=== PATIENT | male | born 1985 | race Caucasian/White ===

== ENCOUNTER 2017-03-23 08:51 | Emergency (ER) | payer OTHER ==
--- NOTE | 2017-03-23 09:36 | PDOC ---
History of Present Illness - General Chief Complaint: Injury Stated Complaint: FALL Time Seen by Provider: 03/23/17 08:58 History Source: Care Provider (direct care worker) Exam Limitations: Physical Impairment - History of Present Illness Initial Comments: 03/23/17 09:31 31-year-old male a resident at [facility] was brought in for evaluation of a fall this morning. Patient was in his bed that was approximately 2 feet off the ground . As per staff this morning they found this patient on the linoleum floor with no physical injuries by protocol is if the patient falls they need to be evaluated by a medical provider. Patient only has a mat underneath his bed since he frequently falls out of bed despite safety measures provided. Patient with history of cerebral palsy along with contractures. Occurred: reports: just prior to arrival Pain Location: reports: none Associated Symptoms (Fall): denies symptoms Past History - Travel Traveled outside of the country in the last 30 days: No - Past Medical History Allergies/Adverse Reactions: Allergies Allergy/AdvReac Type Severity Reaction Status Date / Time No Known Allergies Allergy Verified 03/23/17 09:39 - Suicide/Smoking/Psychosocial Hx Patient Lives Alone: No Lives with/in: snf Review of Systems - Review of Systems Able to Perform ROS?: Yes ABD/GI: No: Vomiting Integumentary: No: Symptoms Reported Hematologic/Lymphatic: Yes: See HPI *Physical Exam - Physical Exam General Appearance: Yes: Nourished, Appropriately Dressed. No: Apparent Distress HEENT: positive: EOMI, SOLA, TMs Normal, Pharynx Normal (full mobility of mandible) Neck: positive: Supple. negative: Decreased range of motion Respiratory/Chest: positive: Lungs Clear, Normal Breath Sounds. negative: Chest Tender, Respiratory Distress, Accessory Muscle Use Cardiovascular: positive: Regular Rhythm, Regular Rate. negative: Murmur Gastrointestinal/Abdominal: positive: Soft. negative: Distended Extremity: positive: Normal Capillary Refill, Normal Inspection Integumentary: positive: Normal Color, Warm, Moist. negative: Erythema, Swelling, Ecchymosis Neurologic: positive: Motor Strength 5/5 (moving contracted extremities x 4 actively ) Medical Decision Making - Medical Decision Making 03/23/17 09:35 Patient status post unwitnessed fall from bed less than 2 feet off the ground staff states patient is here for evaluation. Patient arrives with no physical or acute findings. Patient will be sent back to [facility] *DC/Admit/Observation/Transfer Diagnosis at time of Disposition: Fall Qualifiers: Encounter type: initial encounter Qualified Code(s): W19.XXXA - Unspecified fall, initial encounter - Discharge Dispostion Disposition: HOME - Referrals Referrals: Marcela Hemphill [Primary Care Provider] - - Patient Instructions Printed Discharge Instructions: How to Prevent Falls Additional Instructions: Please provide pt with safety measures. - Post Discharge Activity
[2017-03-23 09:39] VITALS: BP 130/62; PULSE 80; TEMP 98; BMI 21.6
== END 2017-03-23 11:50 | disposition home or self-care (01) ==
LOC: JER 08:51
DX: Z04.3 Encounter for examination and observation following other accident (principal); W06.XXXA Fall from bed, initial encounter; Y93.89 Activity, other specified; Y92.193 Bedroom in other specified residential institution as the place of occurrence of the external cause; G80.8 Other cerebral palsy
CPT/HCPCS: 99282-25

== ENCOUNTER 2022-11-11 10:24 | Inpatient (IN) | payer OTHER ==
[2022-11-11] MEDS ORDERED: HALOPERIDOL LACTATE 5 MG/ML IM ONE ×2 (11:03)
[2022-11-11] MEDS ORDERED: LORazepam 2 MG/ML SDV VIAL IM ONE (11:03)
[2022-11-11 12:28] LABS: VENOUS BASE EXCESS -0.3 mmol/L (-2-2); VENOUS PCO2 49.8 mmHg (38-52); VENOUS PH 7.338 (7.310-7.410)
[2022-11-11 12:41] LABS: EPI CELLS 19 /uL (0-25.1); HYALINE CASTS 0 /uL (0-3.1); URINE APPEARANCE CLEAR; URINE BACTERIA 7 /uL (0-1359); URINE BILIRUBIN NEGATIVE (NEGATIVE); URINE COLOR YELLOW; URINE GLUCOSE (UA) 2+ (NEGATIVE); URINE KETONE TRACE (NEGATIVE); URINE LEUK ESTERASE NEGATIVE (NEGATIVE); URINE NITRITE NEGATIVE (NEGATIVE); URINE PROTEIN NEGATIVE (NEGATIVE); URINE RBC 66 /uL (0-23.9); URINE UROBILINOGEN 0.2 mg/dL (0.2-1.0); URINE WBC 7 /uL (0-25.8)
[2022-11-11 13:10] LABS: EOS % 1.2 % (0-4.5); HEMATOCRIT 41.4 % (35.4-49); HEMOGLOBIN 13.3 GM/dL (11.7-16.9); LYMPH % 13.3 % (8-40); MCH 29.3 pg (25.7-33.7); MCHC 32.1 g/dl (32.0-35.9); MEAN CELL VOLUME 91.1 fl (80-96); MEAN PLT VOLUME 9.4 fl (7.5-11.1); MONO % 16.6 % (3.8-10.2); NEUT % 67.9 % (42.8-82.8); PLATELET COUNT 217 10^3/uL (134-434); RBC 4.54 M/mm3 (4.00-5.60); RDW 13.8 % (11.9-15.9); WHITE BLOOD COUNT 6.7 K/mm3 (4.0-10.0)
[2022-11-11 13:17] LABS: INR 1.05 (0.83-1.09); PROTHROMBIN TIME (PATIENT) 12.2 SEC (9.7-13.0)
[2022-11-11 13:20] LABS: ACTIVATED PTT 30.5 SECONDS (25.2-36.5)
[2022-11-11 13:28] LABS: POTASSIUM 3.9 mmol/L (3.5-5.1)
[2022-11-11 13:30] LABS: CALCIUM 9.1 mg/dL (8.5-10.1)
[2022-11-11 13:31] LABS: ALBUMIN 3.2 g/dl (3.4-5.0); BLOOD UREA NITROGEN 10.2 mg/dL (7-18)
[2022-11-11 13:33] LABS: LACTIC ACID 3.8 mmol/L (0.4-2.0)
[2022-11-11 13:34] LABS: CREATININE 0.9 mg/dL (0.55-1.3)
[2022-11-11 13:36] LABS: BILIRUBIN,TOTAL 0.2 mg/dL (0.2-1); TOT PROT 7.1 g/dl (6.4-8.2)
[2022-11-11] MEDS ORDERED: SODIUM CHLORIDE 0.9% 500 ML INFUS.BAG IV ONE (13:42)
[2022-11-11 15:15] LABS: VENOUS BASE EXCESS -1.3 mmol/L (-2-2); VENOUS PH 7.36 (7.310-7.410)
[2022-11-11 15:42] LABS: LACTIC ACID 2.1 mmol/L (0.4-2.0)
[2022-11-11 15:53] LABS: BILIRUBIN,DIRECT 0.1 mg/dL (0.0-0.2)
[2022-11-11] MEDS ORDERED: REMDESIVIR 200 MG in SODIUM CHLORIDE 250 ML IVPB ONE (18:00)
[2022-11-11 20:40] VITALS: BMI 27.8
[2022-11-11] MEDS ORDERED: clonazePAM 2 MG TABLET PO SCH ×2 (22:00)
[2022-11-11] MEDS ORDERED: DIVALPROEX SODIUM 125 MG SPRINKLE CAPS PO SCH (22:00)
[2022-11-11] MEDS: ACETAMINOPHEN 1000 MG/100 ML BAG IVPB PRN (22:46)
[2022-11-11] MEDS: SENNOSIDES 8.6MG TABLET (FP) PO SCH (22:46)
[2022-11-11] MEDS: CLONAZEPAM PO SCH (22:47)
[2022-11-11] MEDS: TRIHEXYPHENIDYL HCL 5 MG TABLET PO SCH (22:47)
[2022-11-11] MEDS: DIVALPROEX SODIUM 125 MG SPRINKLE CAPS PO SCH (23:09)
[2022-11-12] MEDS: CLONAZEPAM PO SCH ×3 (05:43→21:39)
[2022-11-12] MEDS: TRIHEXYPHENIDYL HCL 5 MG TABLET PO SCH ×3 (05:43→21:37)
[2022-11-12] MEDS: ACETAMINOPHEN 1000 MG/100 ML BAG IVPB PRN (05:45)
[2022-11-12] MEDS ORDERED: CHOLECALCIFEROL (VIT D3) 400 UNIT (10 MCG) TABLET PO SCH (10:00)
[2022-11-12] MEDS ORDERED: DEXAMETHASONE SOD PHOSPHATE 10 MG/1 ML VIAL IVPUSH SCH (10:00)
[2022-11-12] MEDS: REMDESIVIR 100 MG in SODIUM CHLORIDE 250 ML IVPB SCH (10:05)
[2022-11-12] MEDS: ENOXAPARIN NA (PORCINE) 40 MG/0.4 ML DISP.SYRIN SQ SCH (10:06)
[2022-11-12] MEDS: SENNOSIDES 8.6MG TABLET (FP) PO SCH ×2 (10:07→21:40)
[2022-11-12] MEDS: DEXAMETHASONE SOD PHOSPHATE 10 MG/1 ML VIAL IVPUSH SCH (10:07)
[2022-11-12 10:24] LABS: BASO % 0.4 % (0-2.0); EOS % 0.2 % (0-4.5); HEMATOCRIT 41.9 % (35.4-49); HEMOGLOBIN 13.8 GM/dL (11.7-16.9); LYMPH % 8.3 % (8-40); MCH 29.5 pg (25.7-33.7); MEAN CELL VOLUME 89.5 fl (80-96); MEAN PLT VOLUME 8.7 fl (7.5-11.1); MONO % 9.7 % (3.8-10.2); NEUT % 81.4 % (42.8-82.8); PLATELET COUNT 191 10^3/uL (134-434); RBC 4.68 M/mm3 (4.00-5.60); RDW 13.9 % (11.9-15.9); WHITE BLOOD COUNT 12.2 K/mm3 (4.0-10.0)
[2022-11-12] MEDS ORDERED: PIPERACILLIN/TAZOB 3.375 GM 3.375 GM in DEXTROSE 5%-WATER - 50 ML IVPB SCH ×2 (10:30→10:45)
[2022-11-12] MEDS ORDERED: VANCOMYCIN/WATER FOR INJ (PEG) 1 GM/200 ML BAG IVPB SCH (10:30)
[2022-11-12 10:52] LABS: CALCIUM 8.8 mg/dL (8.5-10.1)
[2022-11-12 10:53] LABS: ALBUMIN 2.9 g/dl (3.4-5.0); BLOOD UREA NITROGEN 9.5 mg/dL (7-18)
[2022-11-12 10:58] LABS: BILIRUBIN,TOTAL 0.5 mg/dL (0.2-1); TOT PROT 6.7 g/dl (6.4-8.2)
[2022-11-12] MEDS ORDERED: VANCOMYCIN/WATER FOR INJ (PEG) 1 GM/200 ML BAG IVPB ONE (11:00)
[2022-11-12] MEDS: DIVALPROEX SODIUM 125 MG SPRINKLE CAPS PO SCH ×2 (11:12→21:38)
[2022-11-12] MEDS ORDERED: ACETAMINOPHEN 1000 MG/100 ML BAG IVPB PRN (13:28)
[2022-11-12] MEDS: LACTATED RINGERS SOLUTION 1,000 ML/1,000 ML INFUS.BAG IV SCH (13:32)
[2022-11-12] MEDS ORDERED: clonazePAM 0.5 MG TABLET ONE (14:43)
[2022-11-12] MEDS: PIPERACILLIN/TAZOB 3.375 GM 3.375 GM in DEXTROSE 5%-WATER - 50 ML IVPB SCH (17:35)
[2022-11-12] MEDS: CHOLECALCIFEROL (VIT D3) 1,000 UNIT (25 MCG) TABLET PO SCH (21:38)
[2022-11-12] MEDS: PSYLLIUM 5.85 GM PACKET PO SCH (22:32)
[2022-11-13] MEDS: PIPERACILLIN/TAZOB 3.375 GM 3.375 GM in DEXTROSE 5%-WATER - 50 ML IVPB SCH ×2 (01:12→10:53)
[2022-11-13] MEDS: CLONAZEPAM PO SCH ×3 (05:20→21:06)
[2022-11-13] MEDS: TRIHEXYPHENIDYL HCL 5 MG TABLET PO SCH ×3 (05:20→21:06)
[2022-11-13] MEDS: LACTATED RINGERS SOLUTION 1,000 ML/1,000 ML INFUS.BAG IV SCH (08:10)
[2022-11-13] MEDS: REMDESIVIR 100 MG in SODIUM CHLORIDE 250 ML IVPB SCH (09:29)
[2022-11-13] MEDS: ENOXAPARIN NA (PORCINE) 40 MG/0.4 ML DISP.SYRIN SQ SCH (09:30)
[2022-11-13] MEDS: DEXAMETHASONE SOD PHOSPHATE 10 MG/1 ML VIAL IVPUSH SCH (09:30)
[2022-11-13] MEDS: DIVALPROEX SODIUM 125 MG SPRINKLE CAPS PO SCH ×2 (09:30→21:05)
[2022-11-13] MEDS: SENNOSIDES 8.6MG TABLET (FP) PO SCH ×2 (09:30→21:06)
[2022-11-13 12:30] LABS: BASO % 0.2 % (0-2.0); HEMATOCRIT 39.2 % (35.4-49); HEMOGLOBIN 12.9 GM/dL (11.7-16.9); LYMPH % 11.9 % (8-40); MCH 29.3 pg (25.7-33.7); MCHC 32.9 g/dl (32.0-35.9); MEAN PLT VOLUME 9.1 fl (7.5-11.1); MONO % 5.1 % (3.8-10.2); NEUT % 82.8 % (42.8-82.8); PLATELET COUNT 226 10^3/uL (134-434); RDW 13.9 % (11.9-15.9); WHITE BLOOD COUNT 15.1 K/mm3 (4.0-10.0)
[2022-11-13 12:49] LABS: POTASSIUM 4.4 mmol/L (3.5-5.1)
[2022-11-13 12:51] LABS: CALCIUM 9.2 mg/dL (8.5-10.1)
[2022-11-13 12:52] LABS: ALBUMIN 2.8 g/dl (3.4-5.0); BLOOD UREA NITROGEN 18.4 mg/dL (7-18)
[2022-11-13 12:55] LABS: CREATININE 0.9 mg/dL (0.55-1.3)
[2022-11-13 12:57] LABS: BILIRUBIN,TOTAL 0.2 mg/dL (0.2-1); TOT PROT 6.7 g/dl (6.4-8.2)
[2022-11-13] MEDS: CEFTRIAXONE 1 GM in DEXTROSE 5%-WATER - 50 ML IVPB SCH (17:12)
[2022-11-13] MEDS: CHOLECALCIFEROL (VIT D3) 1,000 UNIT (25 MCG) TABLET PO SCH (21:05)
[2022-11-13] MEDS: PSYLLIUM 5.85 GM PACKET PO SCH (21:06)
[2022-11-14] MEDS: TRIHEXYPHENIDYL HCL 5 MG TABLET PO SCH ×3 (05:07→21:54)
[2022-11-14] MEDS: CLONAZEPAM PO SCH ×3 (05:07→21:53)
[2022-11-14] MEDS: CEFTRIAXONE 1 GM in DEXTROSE 5%-WATER - 50 ML IVPB SCH (09:33)
[2022-11-14] MEDS: ENOXAPARIN NA (PORCINE) 40 MG/0.4 ML DISP.SYRIN SQ SCH (09:34)
[2022-11-14] MEDS: DIVALPROEX SODIUM 125 MG SPRINKLE CAPS PO SCH ×2 (09:34→21:53)
[2022-11-14] MEDS: DEXAMETHASONE SOD PHOSPHATE 10 MG/1 ML VIAL IVPUSH SCH (09:34)
[2022-11-14] MEDS: SENNOSIDES 8.6MG TABLET (FP) PO SCH ×2 (09:35→21:53)
[2022-11-14 10:49] LABS: BASO % 0.3 % (0-2.0); HEMATOCRIT 38.4 % (35.4-49); HEMOGLOBIN 12.6 GM/dL (11.7-16.9); LYMPH % 24.4 % (8-40); MCH 29.2 pg (25.7-33.7); MCHC 32.7 g/dl (32.0-35.9); MEAN CELL VOLUME 89.3 fl (80-96); MEAN PLT VOLUME 8.9 fl (7.5-11.1); MONO % 7.8 % (3.8-10.2); NEUT % 67.5 % (42.8-82.8); PLATELET COUNT 226 10^3/uL (134-434); RDW 13.9 % (11.9-15.9); WHITE BLOOD COUNT 11.1 K/mm3 (4.0-10.0)
[2022-11-14 11:18] LABS: POTASSIUM 4.3 mmol/L (3.5-5.1)
[2022-11-14 11:22] LABS: BLOOD UREA NITROGEN 20.4 mg/dL (7-18)
[2022-11-14 11:23] LABS: CALCIUM 8.8 mg/dL (8.5-10.1)
[2022-11-14 11:24] LABS: ALBUMIN 2.7 g/dl (3.4-5.0)
[2022-11-14 11:27] LABS: CREATININE 0.8 mg/dL (0.55-1.3)
[2022-11-14 11:29] LABS: BILIRUBIN,TOTAL 0.1 mg/dL (0.2-1); TOT PROT 6.5 g/dl (6.4-8.2)
[2022-11-14] MEDS: REMDESIVIR 100 MG in SODIUM CHLORIDE 250 ML IVPB SCH (16:11)
[2022-11-14] MEDS: AMINO ACIDS 4.25%/D5W 1,000 ML IV SCH (17:38)
[2022-11-14] MEDS: CHOLECALCIFEROL (VIT D3) 1,000 UNIT (25 MCG) TABLET PO SCH (21:53)
[2022-11-14] MEDS: PSYLLIUM 5.85 GM PACKET PO SCH (21:53)
[2022-11-15] MEDS: CLONAZEPAM PO SCH ×3 (05:22→21:26)
[2022-11-15] MEDS: TRIHEXYPHENIDYL HCL 5 MG TABLET PO SCH ×3 (05:23→21:28)
[2022-11-15] MEDS: ENOXAPARIN NA (PORCINE) 40 MG/0.4 ML DISP.SYRIN SQ SCH (09:52)
[2022-11-15] MEDS: CEFTRIAXONE 1 GM in DEXTROSE 5%-WATER - 50 ML IVPB SCH (09:52)
[2022-11-15] MEDS: DIVALPROEX SODIUM 125 MG SPRINKLE CAPS PO SCH ×2 (09:52→21:27)
[2022-11-15] MEDS: DEXAMETHASONE SOD PHOSPHATE 10 MG/1 ML VIAL IVPUSH SCH (09:52)
[2022-11-15] MEDS: SENNOSIDES 8.6MG TABLET (FP) PO SCH ×2 (09:52→21:27)
[2022-11-15] MEDS: REMDESIVIR 100 MG in SODIUM CHLORIDE 250 ML IVPB SCH (11:09)
[2022-11-15] MEDS ORDERED: guaiFENesin 200 MG/10 ML 10 ML UNIT-DOSE CUPS PO PRN (12:45)
[2022-11-15] MEDS: AMINO ACIDS 4.25%/D5W 1,000 ML IV SCH (14:47)
[2022-11-15] MEDS: PSYLLIUM 5.85 GM PACKET PO SCH (21:26)
[2022-11-15] MEDS: CHOLECALCIFEROL (VIT D3) 1,000 UNIT (25 MCG) TABLET PO SCH (21:27)
[2022-11-16] MEDS: TRIHEXYPHENIDYL HCL 5 MG TABLET PO SCH ×3 (05:21→22:20)
[2022-11-16] MEDS: CLONAZEPAM PO SCH ×3 (05:21→22:19)
[2022-11-16 08:41] LABS: HEMATOCRIT 40.6 % (35.4-49); HEMOGLOBIN 13.6 GM/dL (11.7-16.9); MCH 29.6 pg (25.7-33.7); MCHC 33.4 g/dl (32.0-35.9); MEAN CELL VOLUME 88.6 fl (80-96); MEAN PLT VOLUME 8.9 fl (7.5-11.1); PLATELET COUNT 273 10^3/uL (134-434); RBC 4.58 M/mm3 (4.00-5.60); RDW 13.5 % (11.9-15.9); WHITE BLOOD COUNT 6.9 K/mm3 (4.0-10.0)
[2022-11-16 08:58] LABS: POTASSIUM 3.9 mmol/L (3.5-5.1)
[2022-11-16 09:01] LABS: CALCIUM 8.9 mg/dL (8.5-10.1)
[2022-11-16 09:02] LABS: BLOOD UREA NITROGEN 25.6 mg/dL (7-18)
[2022-11-16 09:05] LABS: CREATININE 0.7 mg/dL (0.55-1.3)
[2022-11-16] MEDS: DIVALPROEX SODIUM 125 MG SPRINKLE CAPS PO SCH ×2 (10:35→22:19)
[2022-11-16] MEDS: SENNOSIDES 8.6MG TABLET (FP) PO SCH ×2 (10:36→22:20)
[2022-11-16] MEDS: DEXAMETHASONE SOD PHOSPHATE 10 MG/1 ML VIAL IVPUSH SCH (10:36)
[2022-11-16] MEDS: CEFTRIAXONE 1 GM in DEXTROSE 5%-WATER - 50 ML IVPB SCH (10:38)
[2022-11-16] MEDS: ENOXAPARIN NA (PORCINE) 40 MG/0.4 ML DISP.SYRIN SQ SCH (10:38)
[2022-11-16] MEDS ORDERED: CLINDAMYCIN IVPB 300 MG in DEXTROSE 5%-WATER - 48 ML IVPB SCH (11:15)
[2022-11-16] MEDS: ALBUTEROL SO4 2.5/IPRATROPIUM 0.5 INH SOL 3 ML VIAL.NEB. NEB SCH ×3 (12:30→20:40)
[2022-11-16] MEDS: VANCOMYCIN/WATER 1250 MG 1,250 MG/250 ML BAG IVPB SCH (13:21)
[2022-11-16] MEDS: PSYLLIUM 5.85 GM PACKET PO SCH (22:20)
[2022-11-16] MEDS: CHOLECALCIFEROL (VIT D3) 1,000 UNIT (25 MCG) TABLET PO SCH (22:20)
[2022-11-17] MEDS: TRIHEXYPHENIDYL HCL 5 MG TABLET PO SCH ×3 (05:41→21:53)
[2022-11-17] MEDS: CLONAZEPAM PO SCH ×3 (05:41→21:52)
[2022-11-17] MEDS: ALBUTEROL SO4 2.5/IPRATROPIUM 0.5 INH SOL 3 ML VIAL.NEB. NEB SCH ×4 (07:59→20:33)
[2022-11-17 09:09] LABS: HEMATOCRIT 44.3 % (35.4-49); HEMOGLOBIN 14.9 GM/dL (11.7-16.9); MCH 29.6 pg (25.7-33.7); MCHC 33.6 g/dl (32.0-35.9); MEAN CELL VOLUME 88.2 fl (80-96); MEAN PLT VOLUME 8.4 fl (7.5-11.1); PLATELET COUNT 306 10^3/uL (134-434); RBC 5.02 M/mm3 (4.00-5.60); RDW 13.4 % (11.9-15.9); WHITE BLOOD COUNT 9.2 K/mm3 (4.0-10.0)
[2022-11-17 09:50] LABS: POTASSIUM 4.2 mmol/L (3.5-5.1)
[2022-11-17 10:11] LABS: CALCIUM 9.5 mg/dL (8.5-10.1)
[2022-11-17 10:12] LABS: BLOOD UREA NITROGEN 29.2 mg/dL (7-18)
[2022-11-17 10:15] LABS: CREATININE 0.8 mg/dL (0.55-1.3)
[2022-11-17] MEDS: ENOXAPARIN NA (PORCINE) 40 MG/0.4 ML DISP.SYRIN SQ SCH (11:11)
[2022-11-17] MEDS: DIVALPROEX SODIUM 125 MG SPRINKLE CAPS PO SCH ×2 (11:11→21:52)
[2022-11-17] MEDS: SENNOSIDES 8.6MG TABLET (FP) PO SCH ×2 (11:11→21:53)
[2022-11-17] MEDS: DEXAMETHASONE SOD PHOSPHATE 10 MG/1 ML VIAL IVPUSH SCH (11:11)
[2022-11-17] MEDS: VANCOMYCIN/WATER 1250 MG 1,250 MG/250 ML BAG IVPB SCH (11:15)
[2022-11-17] MEDS: CHOLECALCIFEROL (VIT D3) 1,000 UNIT (25 MCG) TABLET PO SCH (21:52)
[2022-11-17] MEDS: PSYLLIUM 5.85 GM PACKET PO SCH (21:52)
[2022-11-18] MEDS: CLONAZEPAM PO SCH ×3 (05:33→21:58)
[2022-11-18] MEDS: TRIHEXYPHENIDYL HCL 5 MG TABLET PO SCH ×3 (05:34→21:59)
[2022-11-18] MEDS: ALBUTEROL SO4 2.5/IPRATROPIUM 0.5 INH SOL 3 ML VIAL.NEB. NEB SCH ×4 (07:50→20:03)
[2022-11-18 08:31] LABS: HEMATOCRIT 42.5 % (35.4-49); HEMOGLOBIN 13.9 GM/dL (11.7-16.9); MCH 29.9 pg (25.7-33.7); MCHC 32.8 g/dl (32.0-35.9); MEAN CELL VOLUME 91.2 fl (80-96); MEAN PLT VOLUME 8.9 fl (7.5-11.1); PLATELET COUNT 294 10^3/uL (134-434); RBC 4.66 M/mm3 (4.00-5.60); RDW 13.6 % (11.9-15.9); WHITE BLOOD COUNT 8.2 K/mm3 (4.0-10.0)
[2022-11-18 09:26] LABS: BLOOD UREA NITROGEN 27.8 mg/dL (7-18); POTASSIUM 4.2 mmol/L (3.5-5.1)
[2022-11-18 09:29] LABS: CREATININE 0.8 mg/dL (0.55-1.3)
[2022-11-18] MEDS: PANTOPRAZOLE SODIUM 40 MG VIAL IVPUSH SCH (10:11)
[2022-11-18] MEDS: DIVALPROEX SODIUM 125 MG SPRINKLE CAPS PO SCH ×2 (10:11→21:58)
[2022-11-18] MEDS: ENOXAPARIN NA (PORCINE) 40 MG/0.4 ML DISP.SYRIN SQ SCH (10:11)
[2022-11-18] MEDS: SENNOSIDES 8.6MG TABLET (FP) PO SCH ×2 (10:12→21:59)
[2022-11-18] MEDS: DEXAMETHASONE SOD PHOSPHATE 10 MG/1 ML VIAL IVPUSH SCH (10:12)
[2022-11-18] MEDS: VANCOMYCIN/WATER 1250 MG 1,250 MG/250 ML BAG IVPB SCH (11:48)
[2022-11-18] MEDS: CHOLECALCIFEROL (VIT D3) 1,000 UNIT (25 MCG) TABLET PO SCH (21:58)
[2022-11-18] MEDS: PSYLLIUM 5.85 GM PACKET PO SCH (21:59)
[2022-11-19] MEDS: TRIHEXYPHENIDYL HCL 5 MG TABLET PO SCH ×3 (05:28→23:53)
[2022-11-19] MEDS: CLONAZEPAM PO SCH ×3 (05:28→23:30)
[2022-11-19] MEDS: ALBUTEROL SO4 2.5/IPRATROPIUM 0.5 INH SOL 3 ML VIAL.NEB. NEB SCH ×4 (07:14→21:01)
[2022-11-19 09:16] LABS: HEMATOCRIT 41.9 % (35.4-49); HEMOGLOBIN 13.5 GM/dL (11.7-16.9); MCH 29.2 pg (25.7-33.7); MCHC 32.3 g/dl (32.0-35.9); MEAN CELL VOLUME 90.5 fl (80-96); MEAN PLT VOLUME 9.1 fl (7.5-11.1); PLATELET COUNT 277 10^3/uL (134-434); RBC 4.63 M/mm3 (4.00-5.60); RDW 13.8 % (11.9-15.9); WHITE BLOOD COUNT 8.3 K/mm3 (4.0-10.0)
[2022-11-19 09:25] LABS: POTASSIUM 3.8 mmol/L (3.5-5.1)
[2022-11-19 09:28] LABS: CALCIUM 8.7 mg/dL (8.5-10.1)
[2022-11-19 09:29] LABS: BLOOD UREA NITROGEN 30.6 mg/dL (7-18)
[2022-11-19 09:32] LABS: CREATININE 0.8 mg/dL (0.55-1.3)
[2022-11-19] MEDS: ENOXAPARIN NA (PORCINE) 40 MG/0.4 ML DISP.SYRIN SQ SCH (11:12)
[2022-11-19] MEDS: PANTOPRAZOLE SODIUM 40 MG VIAL IVPUSH SCH (11:12)
[2022-11-19] MEDS: SENNOSIDES 8.6MG TABLET (FP) PO SCH ×2 (11:13→23:29)
[2022-11-19] MEDS: DEXAMETHASONE SOD PHOSPHATE 10 MG/1 ML VIAL IVPUSH SCH (11:13)
[2022-11-19] MEDS: DIVALPROEX SODIUM 125 MG SPRINKLE CAPS PO SCH (11:13)
[2022-11-19] MEDS: VANCOMYCIN/WATER 1250 MG 1,250 MG/250 ML BAG IVPB SCH (11:14)
[2022-11-19] MEDS: CHOLECALCIFEROL (VIT D3) 1,000 UNIT (25 MCG) TABLET PO SCH (23:31)
[2022-11-19] MEDS: PSYLLIUM 5.85 GM PACKET PO SCH (23:53)
[2022-11-20] MEDS: DIVALPROEX SODIUM 125 MG SPRINKLE CAPS PO SCH ×3 (00:16→22:00)
[2022-11-20] MEDS: CLONAZEPAM PO SCH ×3 (06:56→21:58)
[2022-11-20] MEDS: TRIHEXYPHENIDYL HCL 5 MG TABLET PO SCH ×3 (06:56→21:59)
[2022-11-20 08:53] LABS: HEMOGLOBIN 14.4 GM/dL (11.7-16.9); MCH 29.8 pg (25.7-33.7); MCHC 32.7 g/dl (32.0-35.9); MEAN CELL VOLUME 91.1 fl (80-96); MEAN PLT VOLUME 8.7 fl (7.5-11.1); PLATELET COUNT 269 10^3/uL (134-434); RBC 4.83 M/mm3 (4.00-5.60); RDW 13.9 % (11.9-15.9); WHITE BLOOD COUNT 7.7 K/mm3 (4.0-10.0)
[2022-11-20] MEDS: ALBUTEROL SO4 2.5/IPRATROPIUM 0.5 INH SOL 3 ML VIAL.NEB. NEB SCH ×4 (09:02→20:17)
[2022-11-20 09:44] LABS: POTASSIUM 4.4 mmol/L (3.5-5.1)
[2022-11-20 09:55] LABS: CALCIUM 8.7 mg/dL (8.5-10.1)
[2022-11-20 09:56] LABS: BLOOD UREA NITROGEN 29.9 mg/dL (7-18)
[2022-11-20 09:59] LABS: CREATININE 0.8 mg/dL (0.55-1.3)
[2022-11-20] MEDS: ENOXAPARIN NA (PORCINE) 40 MG/0.4 ML DISP.SYRIN SQ SCH (10:34)
[2022-11-20] MEDS: DEXAMETHASONE SOD PHOSPHATE 10 MG/1 ML VIAL IVPUSH SCH (10:35)
[2022-11-20] MEDS: PANTOPRAZOLE SODIUM 40 MG VIAL IVPUSH SCH (10:35)
[2022-11-20] MEDS: SENNOSIDES 8.6MG TABLET (FP) PO SCH ×2 (10:36→21:58)
[2022-11-20] MEDS: VANCOMYCIN/WATER 1250 MG 1,250 MG/250 ML BAG IVPB SCH (12:26)
[2022-11-20] MEDS: guaiFENesin/D-METHORPHAN HB 10 ML UNIT-DOSE CUPS PO SCH ×2 (12:40→22:03)
[2022-11-20] MEDS: SODIUM CHLORIDE 1,000 ML IV SCH (14:35)
[2022-11-20] MEDS: BUDESONIDE 0.25 MG/2ML INH SUSP VIAL NEB SCH (20:18)
[2022-11-20] MEDS: CHOLECALCIFEROL (VIT D3) 1,000 UNIT (25 MCG) TABLET PO SCH (21:58)
[2022-11-20] MEDS: PSYLLIUM 5.85 GM PACKET PO SCH (22:00)
[2022-11-21] MEDS: VANCOMYCIN/WATER FOR INJ (PEG) 1 GM/200 ML BAG IVPB SCH ×3 (01:27→23:22)
[2022-11-21] MEDS: CLONAZEPAM PO SCH ×3 (06:09→22:10)
[2022-11-21] MEDS: TRIHEXYPHENIDYL HCL 5 MG TABLET PO SCH ×3 (06:10→22:11)
[2022-11-21] MEDS: SODIUM CHLORIDE 1,000 ML IV SCH ×3 (06:20→16:49)
[2022-11-21] MEDS: guaiFENesin/D-METHORPHAN HB 10 ML UNIT-DOSE CUPS PO SCH ×3 (06:20→20:44)
[2022-11-21] MEDS: BUDESONIDE 0.25 MG/2ML INH SUSP VIAL NEB SCH ×2 (07:45→20:05)
[2022-11-21] MEDS: ALBUTEROL SO4 2.5/IPRATROPIUM 0.5 INH SOL 3 ML VIAL.NEB. NEB SCH ×4 (07:45→20:05)
[2022-11-21] MEDS: ENOXAPARIN NA (PORCINE) 40 MG/0.4 ML DISP.SYRIN SQ SCH (11:07)
[2022-11-21] MEDS: PANTOPRAZOLE SODIUM 40 MG VIAL IVPUSH SCH (11:08)
[2022-11-21] MEDS: DIVALPROEX SODIUM 125 MG SPRINKLE CAPS PO SCH ×2 (11:08→22:10)
[2022-11-21] MEDS: SENNOSIDES 8.6MG TABLET (FP) PO SCH ×2 (11:08→22:10)
[2022-11-21 16:33] LABS: HEMATOCRIT 38.4 % (35.4-49); HEMOGLOBIN 12.8 GM/dL (11.7-16.9); MCH 29.8 pg (25.7-33.7); MCHC 33.3 g/dl (32.0-35.9); MEAN CELL VOLUME 89.4 fl (80-96); MEAN PLT VOLUME 8.8 fl (7.5-11.1); PLATELET COUNT 241 10^3/uL (134-434); RBC 4.29 M/mm3 (4.00-5.60); RDW 13.9 % (11.9-15.9); WHITE BLOOD COUNT 8.4 K/mm3 (4.0-10.0)
[2022-11-21 16:48] LABS: POTASSIUM 3.9 mmol/L (3.5-5.1)
[2022-11-21 16:49] LABS: CALCIUM 8.5 mg/dL (8.5-10.1)
[2022-11-21 16:50] LABS: BLOOD UREA NITROGEN 23.1 mg/dL (7-18); MAGNESIUM 2.4 mg/dL (1.8-2.4)
[2022-11-21 16:53] LABS: CREATININE 0.7 mg/dL (0.55-1.3)
[2022-11-21 16:54] LABS: PHOSPHOROUS 3.5 mg/dL (2.5-4.9)
[2022-11-21] MEDS: CHOLECALCIFEROL (VIT D3) 1,000 UNIT (25 MCG) TABLET PO SCH (22:10)
[2022-11-21] MEDS: PSYLLIUM 5.85 GM PACKET PO SCH (22:11)
[2022-11-22] MEDS: TRIHEXYPHENIDYL HCL 5 MG TABLET PO SCH ×3 (05:29→22:21)
[2022-11-22] MEDS: CLONAZEPAM PO SCH ×3 (05:29→22:21)
[2022-11-22] MEDS: guaiFENesin/D-METHORPHAN HB 10 ML UNIT-DOSE CUPS PO SCH ×3 (05:30→22:21)
[2022-11-22] MEDS: ALBUTEROL SO4 2.5/IPRATROPIUM 0.5 INH SOL 3 ML VIAL.NEB. NEB SCH ×4 (08:30→20:20)
[2022-11-22] MEDS: BUDESONIDE 0.25 MG/2ML INH SUSP VIAL NEB SCH ×2 (08:37→20:20)
[2022-11-22] MEDS: PANTOPRAZOLE SODIUM 40 MG VIAL IVPUSH SCH (11:15)
[2022-11-22] MEDS: SENNOSIDES 8.6MG TABLET (FP) PO SCH ×2 (11:15→22:21)
[2022-11-22] MEDS: ENOXAPARIN NA (PORCINE) 40 MG/0.4 ML DISP.SYRIN SQ SCH (11:16)
[2022-11-22] MEDS: DIVALPROEX SODIUM 125 MG SPRINKLE CAPS PO SCH ×2 (11:19→22:22)
[2022-11-22] MEDS ORDERED: predniSONE 20 MG TABLET (UD) GT SCH (11:30)
[2022-11-22] MEDS: VANCOMYCIN/WATER FOR INJ (PEG) 1 GM/200 ML BAG IVPB SCH (13:49)
[2022-11-22] MEDS: CHOLECALCIFEROL (VIT D3) 1,000 UNIT (25 MCG) TABLET PO SCH (22:21)
[2022-11-22] MEDS: PSYLLIUM 5.85 GM PACKET PO SCH (22:22)
[2022-11-23] MEDS: VANCOMYCIN/WATER FOR INJ (PEG) 1 GM/200 ML BAG IVPB SCH ×2 (00:45→12:34)
[2022-11-23] MEDS: CLONAZEPAM PO SCH ×3 (07:32→22:41)
[2022-11-23] MEDS: guaiFENesin/D-METHORPHAN HB 10 ML UNIT-DOSE CUPS PO SCH ×3 (07:32→22:38)
[2022-11-23] MEDS: TRIHEXYPHENIDYL HCL 5 MG TABLET PO SCH ×3 (07:33→22:46)
[2022-11-23] MEDS: BUDESONIDE 0.25 MG/2ML INH SUSP VIAL NEB SCH ×2 (08:37→20:29)
[2022-11-23] MEDS: ALBUTEROL SO4 2.5/IPRATROPIUM 0.5 INH SOL 3 ML VIAL.NEB. NEB SCH ×4 (08:37→20:30)
[2022-11-23 09:28] LABS: BASO % 0.4 % (0-2.0); EOS % 2.7 % (0-4.5); HEMATOCRIT 41.3 % (35.4-49); HEMOGLOBIN 13.8 GM/dL (11.7-16.9); LYMPH % 56.6 % (8-40); MCH 29.4 pg (25.7-33.7); MCHC 33.3 g/dl (32.0-35.9); MEAN CELL VOLUME 88.3 fl (80-96); MEAN PLT VOLUME 9.1 fl (7.5-11.1); MONO % 7.5 % (3.8-10.2); NEUT % 32.8 % (42.8-82.8); PLATELET COUNT 245 10^3/uL (134-434); RBC 4.68 M/mm3 (4.00-5.60); RDW 13.6 % (11.9-15.9); WHITE BLOOD COUNT 7.8 K/mm3 (4.0-10.0)
[2022-11-23 10:52] LABS: POTASSIUM 3.9 mmol/L (3.5-5.1)
[2022-11-23 11:02] LABS: ALBUMIN 2.9 g/dl (3.4-5.0); CALCIUM 8.7 mg/dL (8.5-10.1)
[2022-11-23 11:03] LABS: BLOOD UREA NITROGEN 10.6 mg/dL (7-18); MAGNESIUM 2.3 mg/dL (1.8-2.4)
[2022-11-23 11:06] LABS: CREATININE 0.6 mg/dL (0.55-1.3); PHOSPHOROUS 3.4 mg/dL (2.5-4.9)
[2022-11-23 11:07] LABS: BILIRUBIN,TOTAL 0.6 mg/dL (0.2-1); TOT PROT 6.2 g/dl (6.4-8.2)
[2022-11-23] MEDS: ENOXAPARIN NA (PORCINE) 40 MG/0.4 ML DISP.SYRIN SQ SCH (12:33)
[2022-11-23] MEDS: predniSONE 20 MG TABLET (UD) PO SCH (12:34)
[2022-11-23] MEDS: PANTOPRAZOLE SODIUM 40 MG VIAL IVPUSH SCH (12:34)
[2022-11-23] MEDS: SENNOSIDES 8.6MG TABLET (FP) PO SCH ×2 (12:34→22:42)
[2022-11-23] MEDS: DIVALPROEX SODIUM 125 MG SPRINKLE CAPS PO SCH ×2 (12:38→22:47)
[2022-11-23] MEDS: SODIUM CHLORIDE 1,000 ML IV SCH (15:52)
[2022-11-23] MEDS ORDERED: BUDESONIDE 0.5 MG/2 ML INH SUSP VIAL NEB ONE (20:10)
[2022-11-23] MEDS: CHOLECALCIFEROL (VIT D3) 1,000 UNIT (25 MCG) TABLET PO SCH (22:38)
[2022-11-23] MEDS: PSYLLIUM 5.85 GM PACKET PO SCH (22:46)
[2022-11-24] MEDS: VANCOMYCIN/WATER FOR INJ (PEG) 1 GM/200 ML BAG IVPB SCH (00:30)
[2022-11-24] MEDS: guaiFENesin/D-METHORPHAN HB 10 ML UNIT-DOSE CUPS PO SCH ×3 (04:05→21:28)
[2022-11-24] MEDS: TRIHEXYPHENIDYL HCL 5 MG TABLET PO SCH ×3 (06:02→21:37)
[2022-11-24] MEDS: CLONAZEPAM PO SCH ×3 (06:03→21:30)
[2022-11-24] MEDS: ALBUTEROL SO4 2.5/IPRATROPIUM 0.5 INH SOL 3 ML VIAL.NEB. NEB SCH ×4 (07:30→20:49)
[2022-11-24] MEDS: BUDESONIDE 0.25 MG/2ML INH SUSP VIAL NEB SCH ×2 (08:01→20:50)
[2022-11-24 09:14] LABS: HEMATOCRIT 42.3 % (35.4-49); HEMOGLOBIN 13.9 GM/dL (11.7-16.9); MCH 29.7 pg (25.7-33.7); MCHC 32.7 g/dl (32.0-35.9); MEAN CELL VOLUME 90.8 fl (80-96); PLATELET COUNT 251 10^3/uL (134-434); RBC 4.66 M/mm3 (4.00-5.60); RDW 13.6 % (11.9-15.9); WHITE BLOOD COUNT 13.7 K/mm3 (4.0-10.0)
[2022-11-24 09:59] LABS: CALCIUM 8.9 mg/dL (8.5-10.1)
[2022-11-24 10:00] LABS: BLOOD UREA NITROGEN 12.5 mg/dL (7-18)
[2022-11-24 10:03] LABS: CREATININE 0.7 mg/dL (0.55-1.3)
[2022-11-24] MEDS: SENNOSIDES 8.6MG TABLET (FP) PO SCH ×2 (10:31→21:30)
[2022-11-24] MEDS: PANTOPRAZOLE 40 MG TABLET PO SCH (10:31)
[2022-11-24] MEDS: predniSONE 20 MG TABLET (UD) PO SCH (10:31)
[2022-11-24] MEDS: ENOXAPARIN NA (PORCINE) 40 MG/0.4 ML DISP.SYRIN SQ SCH (10:31)
[2022-11-24] MEDS: DIVALPROEX SODIUM 125 MG SPRINKLE CAPS PO SCH ×2 (10:32→21:37)
[2022-11-24] MEDS ORDERED: BUDESONIDE 0.5 MG/2 ML INH SUSP VIAL NEB ONE (20:33)
[2022-11-24] MEDS: CHOLECALCIFEROL (VIT D3) 1,000 UNIT (25 MCG) TABLET PO SCH (21:30)
[2022-11-24] MEDS: PSYLLIUM 5.85 GM PACKET PO SCH (21:43)
[2022-11-25] MEDS: guaiFENesin/D-METHORPHAN HB 10 ML UNIT-DOSE CUPS PO SCH ×2 (05:30→14:02)
[2022-11-25] MEDS: CLONAZEPAM PO SCH ×2 (05:36→14:02)
[2022-11-25] MEDS: TRIHEXYPHENIDYL HCL 5 MG TABLET PO SCH ×2 (05:48→14:02)
[2022-11-25] MEDS: BUDESONIDE 0.25 MG/2ML INH SUSP VIAL NEB SCH (08:06)
[2022-11-25] MEDS: ALBUTEROL SO4 2.5/IPRATROPIUM 0.5 INH SOL 3 ML VIAL.NEB. NEB SCH (08:06)
[2022-11-25 09:55] LABS: HEMATOCRIT 42.8 % (35.4-49); HEMOGLOBIN 13.8 GM/dL (11.7-16.9); MCH 29.2 pg (25.7-33.7); MCHC 32.3 g/dl (32.0-35.9); MEAN CELL VOLUME 90.6 fl (80-96); MEAN PLT VOLUME 10.7 fl (7.5-11.1); PLATELET COUNT 236 10^3/uL (134-434); RBC 4.73 M/mm3 (4.00-5.60); RDW 13.7 % (11.9-15.9); WHITE BLOOD COUNT 7.1 K/mm3 (4.0-10.0)
[2022-11-25 10:51] LABS: CALCIUM 9.2 mg/dL (8.5-10.1)
[2022-11-25 10:52] LABS: ALBUMIN 3.2 g/dl (3.4-5.0); BLOOD UREA NITROGEN 15.9 mg/dL (7-18)
[2022-11-25 10:53] LABS: CREATININE 0.8 mg/dL (0.55-1.3)
[2022-11-25 10:54] LABS: BILIRUBIN,TOTAL 0.5 mg/dL (0.2-1); TOT PROT 6.6 g/dl (6.4-8.2)
[2022-11-25] MEDS: ENOXAPARIN NA (PORCINE) 40 MG/0.4 ML DISP.SYRIN SQ SCH (11:01)
[2022-11-25] MEDS: SENNOSIDES 8.6MG TABLET (FP) PO SCH (11:02)
[2022-11-25] MEDS: PANTOPRAZOLE 40 MG TABLET PO SCH (11:02)
[2022-11-25] MEDS: DIVALPROEX SODIUM 125 MG SPRINKLE CAPS PO SCH (11:02)
[2022-11-25 14:05] VITALS: BP 130/73; PULSE 95; RESP 18; TEMP 97.8
== END 2022-11-25 15:55 | DRG 720 ==
LOC: JER 10:24 → UNDOADMOB 13:51 → JERBED 13:51 → J5S 15:34 → OBSVTOIN 11-12 09:16 → J7W 11-19 19:12
PROVIDERS: ADMIT Internal Medicine
PROC: XW033E5 Introduction of Remdesivir Anti-infective into Peripheral Vein, Percutaneous Approach, New Technology Group 5 (ICD-10-PCS; principal; 2022-11-12)
PROC: 3E0333Z Introduction of Anti-inflammatory into Peripheral Vein, Percutaneous Approach (ICD-10-PCS; 2022-11-12)
DX: A40.9 Streptococcal sepsis, unspecified (principal); R65.20 Severe sepsis without septic shock; J96.01 Acute respiratory failure with hypoxia; U07.1 COVID-19; J12.82 Pneumonia due to coronavirus disease 2019; E87.20 Acidosis, unspecified; K21.9 Gastro-esophageal reflux disease without esophagitis; G40.909 Epilepsy, unspecified, not intractable, without status epilepticus; G80.0 Spastic quadriplegic cerebral palsy; L21.8 Other seborrheic dermatitis; E55.9 Vitamin D deficiency, unspecified; R45.1 Restlessness and agitation; F72 Severe intellectual disabilities; J98.11 Atelectasis; Z74.01 Bed confinement status
CPT/HCPCS: 0241U-QW; 36415; 71045-TC-FY; 80048; 80053; 81003; 82248; 82550; 82553; 82728; 82803; 83605; 83615; 83735; 84100; 84484; 85025; 85027; 85379; 85610; 85730; 86140; 86850; 86900; 86901; 87040; 87086; 87186; 87635; 93005; 93010; 94640; 99285-25; C9399; G0378; G0480; J1100

== ENCOUNTER 2023-04-18 13:06 | Inpatient (IN) | payer OTHER ==
[2023-04-18] MEDS ORDERED: guaiFENesin 600 MG TABLET.ER (FP) PO ONE (15:06)
[2023-04-18] MEDS ORDERED: guaiFENesin 200 MG/10 ML 10 ML UNIT-DOSE CUPS PO ONE (15:08)
[2023-04-18] MEDS ORDERED: guaiFENesin 200 MG/10 ML 10 ML UNIT-DOSE CUPS ONE (15:45)
[2023-04-18 15:53] LABS: BASO % 0.7 % (0-2.0); EOS % 1.8 % (0-4.5); HEMOGLOBIN 14.6 GM/dL (11.7-16.9); LYMPH % 11.2 % (8-40); MCH 28.7 pg (25.7-33.7); MCHC 32.5 g/dl (32.0-35.9); MEAN CELL VOLUME 88.5 fl (80-96); MONO % 13.8 % (3.8-10.2); NEUT % 72.5 % (42.8-82.8); PLATELET COUNT 248 10^3/uL (134-434); RBC 5.08 M/mm3 (4.00-5.60); RDW 14.2 % (11.9-15.9); WHITE BLOOD COUNT 12.6 K/mm3 (4.0-10.0)
[2023-04-18 16:01] LABS: INR 1.18 (0.83-1.09); PROTHROMBIN TIME (PATIENT) 13.7 SEC (9.7-13.0)
[2023-04-18 16:04] LABS: ACTIVATED PTT 31.7 SECONDS (25.2-36.5)
[2023-04-18 16:17] LABS: POTASSIUM 5.1 mmol/L (3.5-5.1)
[2023-04-18 16:20] LABS: ALBUMIN 3.4 g/dl (3.4-5.0); BLOOD UREA NITROGEN 10.7 mg/dL (7-18); CALCIUM 9.4 mg/dL (8.5-10.1); LACTIC ACID 5.4 mmol/L (0.4-2.0); MAGNESIUM 1.9 mg/dL (1.8-2.4)
[2023-04-18 16:23] LABS: CREATININE 1.2 mg/dL (0.55-1.3)
[2023-04-18 16:25] LABS: BILIRUBIN,TOTAL 0.4 mg/dL (0.2-1); TOT PROT 7.6 g/dl (6.4-8.2)
[2023-04-18] MEDS ORDERED: HALOPERIDOL LACTATE 5 MG/ML ONE (19:09)
[2023-04-18] MEDS ORDERED: VANCOMYCIN 1,000 MG in DEXTROSE 5%-WATER - 250 ML IVPB ONE (20:45)
[2023-04-18] MEDS ORDERED: LACTATED RINGERS SOLUTION 1000 ML INFUS.BAG IV ONE (20:45)
[2023-04-18] MEDS ORDERED: PIPERACILLIN/TAZOB 4.5 GM 4.5 GM in DEXTROSE 5%-WATER 100 ML IVPB ONE (20:45)
[2023-04-18] MEDS ORDERED: PIPERACILLIN/TAZOB 4.5 GM 4.5 GM/100 ML BAG IVPB ONE (20:54)
[2023-04-18] MEDS ORDERED: VANCOMYCIN 1 GRAM (PRE-DOCKED) 1,000 MG/250 ML BAG IVPB ONE (20:54)
[2023-04-18] MEDS ORDERED: DIVALPROEX SODIUM 125 MG SPRINKLE CAPS PO ONE (21:21)
[2023-04-18] MEDS ORDERED: SIMETHICONE 40 MG/0.6 ML BOTTLE PO PRN (23:03)
[2023-04-18] MEDS ORDERED: NAPHAZOLINE/PHENIRAMINE OPHTHALMIC 15 ML BOTTLE OU PRN (23:03)
[2023-04-18] MEDS ORDERED: diphenhydrAMINE HCL 25 MG CAPSULE (FP) PO PRN (23:03)
[2023-04-18] MEDS ORDERED: guaiFENesin/D-METHORPHAN HB 10 ML UNIT-DOSE CUPS PO PRN (23:03)
[2023-04-18] MEDS ORDERED: IBUPROFEN 400 MG TABLET (FP) PO PRN (23:03)
[2023-04-18] MEDS ORDERED: SODIUM PHOSPHATE/NA BIPHOS 133 ML ENEMA RC PRN (23:03)
[2023-04-18] MEDS ORDERED: PATIENT'S OWN MEDICATION (NON-FORMULARY) (Clonazepam [Clonazepam] 1 MG Tablet) PO SCH (23:15)
[2023-04-18] MEDS ORDERED: LANOLIN (EMOLL) 30 GM TUBE TP PRN (23:15)
[2023-04-18] MEDS ORDERED: BISACODYL 10 MG SUPP.RECT PR PRN (23:15)
[2023-04-18] MEDS ORDERED: ZINC OXIDE 20% TOPICAL OINTMENT 30 GM TUBE TP PRN (23:15)
[2023-04-18] MEDS ORDERED: SODIUM CHLORIDE 1,000 ML IV SCH (23:30)
[2023-04-18 23:39] LABS: VENOUS BASE EXCESS -0.8 mmol/L (-2-2); VENOUS O2 SATURATION 80.8 % (70-80); VENOUS PCO2 53.6 mmHg (38-52); VENOUS PH 7.311 (7.310-7.410)
[2023-04-18] MEDS ORDERED: SODIUM CHLORIDE 1,000 ML IV STA (23:53)
[2023-04-18] MEDS: ALBUTEROL SO4 2.5/IPRATROPIUM 0.5 INH SOL 3 ML VIAL.NEB. NEB SCH ×3 (23:56→23:58)
[2023-04-19] MEDS ORDERED: ACETAMINOPHEN 1000 MG/100 ML BAG IVPB ONE (00:42)
[2023-04-19 00:51] LABS: PH,URINE 7.5 (5.0-8.0); URINE APPEARANCE CLEAR; URINE BILIRUBIN NEGATIVE (NEGATIVE); URINE COLOR YELLOW; URINE GLUCOSE (UA) NEGATIVE (NEGATIVE); URINE KETONE NEGATIVE (NEGATIVE); URINE LEUK ESTERASE NEGATIVE (NEGATIVE); URINE NITRITE NEGATIVE (NEGATIVE); URINE PROTEIN TRACE (NEGATIVE)
[2023-04-19] MEDS ORDERED: HALOPERIDOL LACTATE 5 MG/ML ONE (02:24)
[2023-04-19] MEDS ORDERED: HALOPERIDOL LACTATE 5 MG/ML IM ONE (02:30)
[2023-04-19] MEDS ORDERED: LORazepam 2 MG/ML SDV VIAL IVPUSH SCH (03:00)
[2023-04-19] MEDS ORDERED: diazePAM RECTAL GEL 5 MG KIT (PRE-CALIBRATED) RC ONE (03:00)
[2023-04-19 03:14] LABS: LACTIC ACID 7.1 mmol/L (0.4-2.0)
[2023-04-19] MEDS ORDERED: VALPROATE SODIUM 500 MG/5 ML VIAL IVPB SCH (03:30)
[2023-04-19] MEDS: SODIUM CHLORIDE 1,000 ML IV SCH ×2 (04:15→22:45)
[2023-04-19] MEDS: ACETAMINOPHEN 325 MG TABLET (FP) PO SCH ×4 (04:20→22:29)
[2023-04-19] MEDS: SENNOSIDES 8.6MG TABLET (FP) PO SCH ×3 (04:21→22:31)
[2023-04-19] MEDS: TRIHEXYPHENIDYL HCL 5 MG TABLET PO SCH ×4 (04:21→22:43)
[2023-04-19] MEDS: PIPERACILLIN/TAZOB 3.375 GM 3.375 GM in DEXTROSE 5%-WATER - 50 ML IVPB SCH ×3 (05:01→18:05)
[2023-04-19] MEDS ORDERED: PIPERACILLIN/TAZOB 3.375 GM 3.375 GM/50 ML BAG IVPB ONE ×2 (05:12→09:06)
[2023-04-19] MEDS: LORazepam 2 MG/ML SDV VIAL IVPUSH SCH ×3 (05:44→22:28)
[2023-04-19] MEDS ORDERED: SODIUM CHLORIDE 1,000 ML IV STA (05:55)
[2023-04-19] MEDS ORDERED: CLONAZEPAM PO SCH (06:00)
[2023-04-19] MEDS ORDERED: ACETAMINOPHEN 1000 MG/100 ML BAG IVPB PRN (06:00)
[2023-04-19] MEDS ORDERED: DIVALPROEX SODIUM 125 MG SPRINKLE CAPS PO SCH ×2 (07:00→22:00)
[2023-04-19 08:11] LABS: HEMATOCRIT 43.1 % (35.4-49); HEMOGLOBIN 13.8 GM/dL (11.7-16.9); MCH 29.1 pg (25.7-33.7); PLATELET COUNT 184 10^3/uL (134-434); RBC 4.73 M/mm3 (4.00-5.60); RDW 13.8 % (11.9-15.9); WHITE BLOOD COUNT 13.7 K/mm3 (4.0-10.0)
[2023-04-19 08:36] LABS: POTASSIUM 4.2 mmol/L (3.5-5.1)
[2023-04-19 08:40] LABS: ALBUMIN 3.1 g/dl (3.4-5.0); BLOOD UREA NITROGEN 9.7 mg/dL (7-18); CALCIUM 8.5 mg/dL (8.5-10.1); MAGNESIUM 2.1 mg/dL (1.8-2.4)
[2023-04-19 08:43] LABS: CREATININE 0.8 mg/dL (0.55-1.3)
[2023-04-19 08:45] LABS: BILIRUBIN,TOTAL 0.5 mg/dL (0.2-1); TOT PROT 6.8 g/dl (6.4-8.2)
[2023-04-19] MEDS ORDERED: VANCOMYCIN/WATER FOR INJ (PEG) 1,000 MG/200 ML BAG IVPB SCH (09:00)
[2023-04-19] MEDS ORDERED: ALBUTEROL SO4 2.5/IPRATROPIUM 0.5 INH SOL 3 ML VIAL.NEB. NEB ONE ×3 (09:05→13:21)
[2023-04-19] MEDS ORDERED: VALPROATE SODIUM 500 MG/5 ML VIAL ONE (09:05)
[2023-04-19] MEDS ORDERED: VANCOMYCIN 1 GRAM (PRE-DOCKED) 1,000 MG/250 ML BAG IVPB ONE (09:06)
[2023-04-19] MEDS ORDERED: ENOXAPARIN NA (PORCINE) 40 MG/0.4 ML DISP.SYRIN SQ ONE (09:06)
[2023-04-19] MEDS: SODIUM CHLORIDE IVPB SCH ×2 (09:25→22:31)
[2023-04-19] MEDS: VALPROATE SODIUM IVPB SCH ×2 (09:25→22:31)
[2023-04-19] MEDS: VANCOMYCIN/WATER FOR INJ (PEG) 1,000 MG/200 ML BAG IVPB SCH ×2 (09:25→22:29)
[2023-04-19] MEDS: CHOLECALCIFEROL (VIT D3) 1,000 UNIT (25 MCG) TABLET PO SCH (09:26)
[2023-04-19] MEDS: ALBUTEROL SO4 2.5/IPRATROPIUM 0.5 INH SOL 3 ML VIAL.NEB. NEB SCH ×4 (09:27→21:19)
[2023-04-19] MEDS ORDERED: ENOXAPARIN NA (PORCINE) 40 MG/0.4 ML DISP.SYRIN SQ SCH (10:00)
[2023-04-19 14:03] LABS: LACTIC ACID 3.1 mmol/L (0.4-2.0)
[2023-04-19] MEDS ORDERED: methylPREDNISolone NA SUCC 40 MG/1 ML VIAL ONE (14:37)
[2023-04-19] MEDS: methylPREDNISolone NA SUCC 40 MG/1 ML VIAL IVPUSH SCH (14:43)
[2023-04-19] MEDS ORDERED: PATIENT'S OWN MEDICATION (NON-FORMULARY) (Methylcellulose [Fiber Laxative] 500 MG Tablet) GT SCH (22:00)
[2023-04-20] MEDS: PIPERACILLIN/TAZOB 3.375 GM 3.375 GM in DEXTROSE 5%-WATER - 50 ML IVPB SCH ×3 (03:32→18:12)
[2023-04-20] MEDS: LORazepam 2 MG/ML SDV VIAL IVPUSH SCH ×3 (05:50→21:50)
[2023-04-20] MEDS: ACETAMINOPHEN 325 MG TABLET (FP) PO SCH ×5 (05:50→23:17)
[2023-04-20] MEDS: TRIHEXYPHENIDYL HCL 5 MG TABLET PO SCH ×3 (05:50→22:02)
[2023-04-20] MEDS: ALBUTEROL SO4 2.5/IPRATROPIUM 0.5 INH SOL 3 ML VIAL.NEB. NEB SCH ×4 (08:55→20:05)
[2023-04-20] MEDS: SODIUM CHLORIDE 1,000 ML IV SCH (09:33)
[2023-04-20] MEDS: methylPREDNISolone NA SUCC 40 MG/1 ML VIAL IVPUSH SCH (09:34)
[2023-04-20] MEDS: HEPARIN NA (PORCINE) 5,000 UNITS/ML 1ML VIAL SQ SCH ×2 (09:34→22:02)
[2023-04-20] MEDS: SENNOSIDES 8.6MG TABLET (FP) PO SCH ×2 (09:35→22:02)
[2023-04-20] MEDS: CHOLECALCIFEROL (VIT D3) 1,000 UNIT (25 MCG) TABLET PO SCH (09:35)
[2023-04-20] MEDS: VALPROATE SODIUM IVPB SCH ×5 (11:32→21:50)
[2023-04-20] MEDS: SODIUM CHLORIDE IVPB SCH ×5 (11:32→21:50)
[2023-04-20] MEDS: VANCOMYCIN/WATER 1250 MG 1,250 MG/250 ML BAG IVPB SCH (13:18)
[2023-04-20 13:42] LABS: POTASSIUM 4.9 mmol/L (3.5-5.1)
[2023-04-20 13:43] LABS: CALCIUM 9.4 mg/dL (8.5-10.1)
[2023-04-20 13:44] LABS: BLOOD UREA NITROGEN 14.4 mg/dL (7-18)
[2023-04-20 13:47] LABS: CREATININE 0.8 mg/dL (0.55-1.3)
[2023-04-20 14:52] VITALS: BMI 28.0
[2023-04-20 15:51] LABS: BASO % 0.1 % (0-2.0); HEMATOCRIT 42.5 % (35.4-49); HEMOGLOBIN 13.4 GM/dL (11.7-16.9); LYMPH % 11.1 % (8-40); MCH 28.8 pg (25.7-33.7); MCHC 31.5 g/dl (32.0-35.9); MEAN CELL VOLUME 91.2 fl (80-96); MONO % 3.4 % (3.8-10.2); NEUT % 85.4 % (42.8-82.8); PLATELET COUNT 223 10^3/uL (134-434); RBC 4.66 M/mm3 (4.00-5.60); RDW 13.9 % (11.9-15.9); WHITE BLOOD COUNT 11.6 K/mm3 (4.0-10.0)
[2023-04-20 16:22] LABS: LACTIC ACID 7.5 mmol/L (0.4-2.0)
[2023-04-20] MEDS ORDERED: ACETAMINOPHEN 1000 MG/100 ML BAG IVPB ONE (17:14)
[2023-04-20] MEDS ORDERED: LACTATED RINGERS SOLUTION 1,000 ML/1,000 ML INFUS.BAG IV SCH (18:30)
[2023-04-20] MEDS ORDERED: LORazepam 2 MG/ML SDV VIAL IVPUSH SCH (19:19)
[2023-04-20 21:16] LABS: LACTIC ACID 6.6 mmol/L (0.4-2.0)
[2023-04-20] MEDS ORDERED: LACTATED RINGERS SOLUTION 1,000 ML/1,000 ML INFUS.BAG IV STA (21:27)
[2023-04-21] MEDS: LORazepam 2 MG/ML SDV VIAL IVPUSH SCH ×2 (01:31→18:58)
[2023-04-21] MEDS: PIPERACILLIN/TAZOB 3.375 GM 3.375 GM in DEXTROSE 5%-WATER - 50 ML IVPB SCH ×3 (01:32→18:46)
[2023-04-21 02:02] LABS: LACTIC ACID 2.7 mmol/L (0.4-2.0)
[2023-04-21] MEDS: VALPROATE SODIUM IVPB SCH ×4 (03:32→22:00)
[2023-04-21] MEDS: SODIUM CHLORIDE IVPB SCH ×4 (03:32→22:00)
[2023-04-21] MEDS: ACETAMINOPHEN 325 MG TABLET (FP) PO SCH (05:54)
[2023-04-21] MEDS: TRIHEXYPHENIDYL HCL 5 MG TABLET PO SCH ×4 (05:55→21:51)
[2023-04-21 07:08] LABS: HEMATOCRIT 37.2 % (35.4-49); HEMOGLOBIN 12.2 GM/dL (11.7-16.9); MCH 29.2 pg (25.7-33.7); MCHC 32.6 g/dl (32.0-35.9); MEAN CELL VOLUME 89.4 fl (80-96); MEAN PLT VOLUME 9.2 fl (7.5-11.1); PLATELET COUNT 240 10^3/uL (134-434); RBC 4.17 M/mm3 (4.00-5.60); RDW 13.8 % (11.9-15.9); WHITE BLOOD COUNT 9.4 K/mm3 (4.0-10.0)
[2023-04-21 07:33] LABS: POTASSIUM 3.8 mmol/L (3.5-5.1)
[2023-04-21 07:37] LABS: ALBUMIN 2.7 g/dl (3.4-5.0); BLOOD UREA NITROGEN 20.4 mg/dL (7-18)
[2023-04-21 07:38] LABS: MAGNESIUM 2.4 mg/dL (1.8-2.4)
[2023-04-21] MEDS: ALBUTEROL SO4 2.5/IPRATROPIUM 0.5 INH SOL 3 ML VIAL.NEB. NEB SCH ×4 (07:39→20:31)
[2023-04-21 07:40] LABS: CREATININE 0.7 mg/dL (0.55-1.3)
[2023-04-21 07:42] LABS: BILIRUBIN,TOTAL 0.5 mg/dL (0.2-1); TOT PROT 6.2 g/dl (6.4-8.2)
[2023-04-21] MEDS ORDERED: ACETAMINOPHEN 1000 MG/100 ML BAG IVPB PRN (09:58)
[2023-04-21] MEDS: HEPARIN NA (PORCINE) 5,000 UNITS/ML 1ML VIAL SQ SCH ×2 (10:09→21:51)
[2023-04-21] MEDS: SENNOSIDES 8.6MG TABLET (FP) PO SCH ×3 (10:09→21:51)
[2023-04-21] MEDS: methylPREDNISolone NA SUCC 40 MG/1 ML VIAL IVPUSH SCH (10:09)
[2023-04-21] MEDS: CHOLECALCIFEROL (VIT D3) 1,000 UNIT (25 MCG) TABLET PO SCH ×2 (10:09→11:10)
[2023-04-21] MEDS: LACTATED RINGERS SOLUTION 1,000 ML/1,000 ML INFUS.BAG IV SCH (11:15)
[2023-04-21] MEDS: VANCOMYCIN/WATER 1250 MG 1,250 MG/250 ML BAG IVPB SCH (12:44)
[2023-04-21] MEDS ORDERED: LORazepam 2 MG/ML SDV VIAL IVPUSH SCH (18:52)
[2023-04-22] MEDS: LORazepam 2 MG/ML SDV VIAL IVPUSH SCH ×3 (01:12→17:38)
[2023-04-22] MEDS: PIPERACILLIN/TAZOB 3.375 GM 3.375 GM in DEXTROSE 5%-WATER - 50 ML IVPB SCH ×4 (01:12→19:33)
[2023-04-22] MEDS: VALPROATE SODIUM IVPB SCH ×4 (06:03→20:51)
[2023-04-22] MEDS: SODIUM CHLORIDE IVPB SCH ×4 (06:03→20:51)
[2023-04-22] MEDS: TRIHEXYPHENIDYL HCL 5 MG TABLET PO SCH ×3 (06:03→22:48)
[2023-04-22 07:13] LABS: HEMATOCRIT 39.5 % (35.4-49); MCH 29.3 pg (25.7-33.7); MEAN CELL VOLUME 88.9 fl (80-96); PLATELET COUNT 298 10^3/uL (134-434); RBC 4.45 M/mm3 (4.00-5.60); RDW 13.9 % (11.9-15.9); WHITE BLOOD COUNT 8.4 K/mm3 (4.0-10.0)
[2023-04-22 07:31] LABS: CALCIUM 8.9 mg/dL (8.5-10.1)
[2023-04-22] MEDS: ALBUTEROL SO4 2.5/IPRATROPIUM 0.5 INH SOL 3 ML VIAL.NEB. NEB SCH ×4 (07:31→20:35)
[2023-04-22 07:32] LABS: ALBUMIN 2.8 g/dl (3.4-5.0); BLOOD UREA NITROGEN 19.9 mg/dL (7-18)
[2023-04-22 07:35] LABS: CREATININE 0.7 mg/dL (0.55-1.3)
[2023-04-22 07:36] LABS: BILIRUBIN,TOTAL 0.5 mg/dL (0.2-1); TOT PROT 6.4 g/dl (6.4-8.2)
[2023-04-22] MEDS: CHOLECALCIFEROL (VIT D3) 1,000 UNIT (25 MCG) TABLET PO SCH (09:37)
[2023-04-22] MEDS: methylPREDNISolone NA SUCC 40 MG/1 ML VIAL IVPUSH SCH (09:38)
[2023-04-22] MEDS: SENNOSIDES 8.6MG TABLET (FP) PO SCH ×2 (09:38→22:49)
[2023-04-22] MEDS: HEPARIN NA (PORCINE) 5,000 UNITS/ML 1ML VIAL SQ SCH ×2 (09:41→22:31)
[2023-04-22] MEDS: LACTATED RINGERS SOLUTION 1,000 ML/1,000 ML INFUS.BAG IV SCH ×2 (12:25→22:49)
[2023-04-22] MEDS: VANCOMYCIN/WATER 1250 MG 1,250 MG/250 ML BAG IVPB SCH (13:28)
[2023-04-22] MEDS ORDERED: guaiFENesin/D-METHORPHAN HB 10 ML UNIT-DOSE CUPS PO PRN (21:04)
[2023-04-22] MEDS ORDERED: LANOLIN (EMOLL) 30 GM TUBE TP PRN (21:04)
[2023-04-22] MEDS ORDERED: SIMETHICONE 40 MG/0.6 ML BOTTLE PO PRN (21:04)
[2023-04-22] MEDS ORDERED: BISACODYL 10 MG SUPP.RECT PR PRN (21:04)
[2023-04-22] MEDS ORDERED: ZINC OXIDE 20% TOPICAL OINTMENT 30 GM TUBE TP PRN (21:04)
[2023-04-22] MEDS ORDERED: NAPHAZOLINE/PHENIRAMINE OPHTHALMIC 15 ML BOTTLE OU PRN (21:04)
[2023-04-23] MEDS: LACTATED RINGERS SOLUTION 1,000 ML/1,000 ML INFUS.BAG IV SCH ×2 (01:24→12:32)
[2023-04-23] MEDS: PIPERACILLIN/TAZOB 3.375 GM 3.375 GM in DEXTROSE 5%-WATER - 50 ML IVPB SCH ×3 (01:34→18:39)
[2023-04-23] MEDS: LORazepam 2 MG/ML SDV VIAL IVPUSH SCH ×3 (01:35→18:39)
[2023-04-23] MEDS: VALPROATE SODIUM IVPB SCH ×5 (03:18→21:14)
[2023-04-23] MEDS: SODIUM CHLORIDE IVPB SCH ×5 (03:18→21:14)
[2023-04-23] MEDS: TRIHEXYPHENIDYL HCL 5 MG TABLET PO SCH ×3 (06:46→21:20)
[2023-04-23] MEDS: ALBUTEROL SO4 2.5/IPRATROPIUM 0.5 INH SOL 3 ML VIAL.NEB. NEB SCH ×4 (07:40→20:10)
[2023-04-23] MEDS: methylPREDNISolone NA SUCC 40 MG/1 ML VIAL IVPUSH SCH (10:47)
[2023-04-23] MEDS: HEPARIN NA (PORCINE) 5,000 UNITS/ML 1ML VIAL SQ SCH ×2 (10:48→21:21)
[2023-04-23] MEDS: SENNOSIDES 8.6MG TABLET (FP) PO SCH ×2 (10:53→21:20)
[2023-04-23] MEDS: CHOLECALCIFEROL (VIT D3) 1,000 UNIT (25 MCG) TABLET PO SCH (10:54)
[2023-04-23 11:51] LABS: HEMOGLOBIN 13.2 GM/dL (11.7-16.9); MCH 28.2 pg (25.7-33.7); MCHC 32.2 g/dl (32.0-35.9); MEAN CELL VOLUME 87.6 fl (80-96); MEAN PLT VOLUME 8.3 fl (7.5-11.1); PLATELET COUNT 323 10^3/uL (134-434); RBC 4.68 M/mm3 (4.00-5.60); RDW 14.3 % (11.9-15.9); WHITE BLOOD COUNT 7.8 K/mm3 (4.0-10.0)
[2023-04-23 12:53] LABS: POTASSIUM 3.6 mmol/L (3.5-5.1)
[2023-04-23 12:57] LABS: CALCIUM 8.3 mg/dL (8.5-10.1)
[2023-04-23 12:58] LABS: ALBUMIN 2.9 g/dl (3.4-5.0); BLOOD UREA NITROGEN 17.7 mg/dL (7-18)
[2023-04-23 13:01] LABS: CREATININE 0.8 mg/dL (0.55-1.3)
[2023-04-23 13:03] LABS: BILIRUBIN,TOTAL 0.7 mg/dL (0.2-1); TOT PROT 6.5 g/dl (6.4-8.2)
[2023-04-23] MEDS: VANCOMYCIN/WATER 1250 MG 1,250 MG/250 ML BAG IVPB SCH (13:40)
[2023-04-24] MEDS: PIPERACILLIN/TAZOB 3.375 GM 3.375 GM in DEXTROSE 5%-WATER - 50 ML IVPB SCH ×3 (01:45→17:24)
[2023-04-24] MEDS: LACTATED RINGERS SOLUTION 1,000 ML/1,000 ML INFUS.BAG IV SCH ×2 (01:46→21:47)
[2023-04-24] MEDS: LORazepam 2 MG/ML SDV VIAL IVPUSH SCH ×4 (01:47→18:02)
[2023-04-24] MEDS: SODIUM CHLORIDE IVPB SCH ×4 (02:03→21:47)
[2023-04-24] MEDS: VALPROATE SODIUM IVPB SCH ×4 (02:03→21:47)
[2023-04-24] MEDS: TRIHEXYPHENIDYL HCL 5 MG TABLET PO SCH ×3 (05:04→21:48)
[2023-04-24] MEDS: ALBUTEROL SO4 2.5/IPRATROPIUM 0.5 INH SOL 3 ML VIAL.NEB. NEB SCH ×4 (07:40→19:50)
[2023-04-24 08:40] LABS: BASO % 0.5 % (0-2.0); EOS % 0.2 % (0-4.5); HEMATOCRIT 39.9 % (35.4-49); LYMPH % 35.5 % (8-40); MCH 29.1 pg (25.7-33.7); MCHC 32.7 g/dl (32.0-35.9); MEAN CELL VOLUME 89.2 fl (80-96); MEAN PLT VOLUME 8.4 fl (7.5-11.1); MONO % 11.1 % (3.8-10.2); NEUT % 52.7 % (42.8-82.8); PLATELET COUNT 321 10^3/uL (134-434); RBC 4.47 M/mm3 (4.00-5.60); RDW 13.8 % (11.9-15.9); WHITE BLOOD COUNT 7.4 K/mm3 (4.0-10.0)
[2023-04-24 08:42] LABS: POTASSIUM 3.5 mmol/L (3.5-5.1)
[2023-04-24 08:47] LABS: CALCIUM 8.2 mg/dL (8.5-10.1)
[2023-04-24 08:48] LABS: ALBUMIN 2.5 g/dl (3.4-5.0); BLOOD UREA NITROGEN 15.8 mg/dL (7-18)
[2023-04-24 08:51] LABS: CREATININE 0.7 mg/dL (0.55-1.3)
[2023-04-24 08:52] LABS: BILIRUBIN,TOTAL 0.5 mg/dL (0.2-1)
[2023-04-24] MEDS: CHOLECALCIFEROL (VIT D3) 1,000 UNIT (25 MCG) TABLET PO SCH (10:01)
[2023-04-24] MEDS: HEPARIN NA (PORCINE) 5,000 UNITS/ML 1ML VIAL SQ SCH ×2 (10:02→22:12)
[2023-04-24] MEDS: SENNOSIDES 8.6MG TABLET (FP) PO SCH ×2 (10:02→21:48)
[2023-04-24] MEDS: methylPREDNISolone NA SUCC 40 MG/1 ML VIAL IVPUSH SCH (10:02)
[2023-04-24] MEDS ORDERED: AMINO ACIDS 4.25%/D5W 1,000 ML IV SCH (12:45)
[2023-04-24] MEDS: VANCOMYCIN/WATER 1250 MG 1,250 MG/250 ML BAG IVPB SCH (12:46)
[2023-04-25] MEDS: PIPERACILLIN/TAZOB 3.375 GM 3.375 GM in DEXTROSE 5%-WATER - 50 ML IVPB SCH ×3 (01:44→17:59)
[2023-04-25] MEDS: LORazepam 2 MG/ML SDV VIAL IVPUSH SCH ×3 (01:44→17:58)
[2023-04-25] MEDS: SODIUM CHLORIDE IVPB SCH ×4 (02:28→20:26)
[2023-04-25] MEDS: VALPROATE SODIUM IVPB SCH ×4 (02:28→20:26)
[2023-04-25] MEDS: TRIHEXYPHENIDYL HCL 5 MG TABLET PO SCH ×3 (05:13→22:51)
[2023-04-25] MEDS: ALBUTEROL SO4 2.5/IPRATROPIUM 0.5 INH SOL 3 ML VIAL.NEB. NEB SCH ×4 (07:40→20:30)
[2023-04-25] MEDS ORDERED: AMINO ACIDS 4.25%/D5W 1,000 ML IV SCH ×2 (09:23→17:30)
[2023-04-25 10:49] LABS: BASO % 0.4 % (0-2.0); HEMATOCRIT 42.8 % (35.4-49); HEMOGLOBIN 14.1 GM/dL (11.7-16.9); LYMPH % 39.4 % (8-40); MCH 29.2 pg (25.7-33.7); MCHC 32.9 g/dl (32.0-35.9); MEAN CELL VOLUME 88.7 fl (80-96); MEAN PLT VOLUME 8.4 fl (7.5-11.1); MONO % 10.9 % (3.8-10.2); NEUT % 48.3 % (42.8-82.8); PLATELET COUNT 320 10^3/uL (134-434); RBC 4.82 M/mm3 (4.00-5.60); RDW 13.8 % (11.9-15.9); WHITE BLOOD COUNT 7.8 K/mm3 (4.0-10.0)
[2023-04-25 11:04] LABS: POTASSIUM 3.6 mmol/L (3.5-5.1)
[2023-04-25 11:08] LABS: BLOOD UREA NITROGEN 15.3 mg/dL (7-18); CALCIUM 9.1 mg/dL (8.5-10.1)
[2023-04-25 11:10] LABS: CREATININE 0.6 mg/dL (0.55-1.3)
[2023-04-25] MEDS: SENNOSIDES 8.6MG TABLET (FP) PO SCH ×2 (11:41→22:51)
[2023-04-25] MEDS: CHOLECALCIFEROL (VIT D3) 1,000 UNIT (25 MCG) TABLET PO SCH (11:42)
[2023-04-25] MEDS: HEPARIN NA (PORCINE) 5,000 UNITS/ML 1ML VIAL SQ SCH ×2 (11:46→22:55)
[2023-04-25] MEDS: AMINO ACIDS 4.25%/D5W 1,000 ML IV SCH ×2 (11:47→22:53)
[2023-04-25] MEDS: VANCOMYCIN/WATER 1250 MG 1,250 MG/250 ML BAG IVPB SCH (14:51)
[2023-04-25] MEDS: SCOPOLAMINE HYDROBROMIDE 1 PATCH PATCH.TD72 TD SCH (23:40)
[2023-04-26] MEDS: PIPERACILLIN/TAZOB 3.375 GM 3.375 GM in DEXTROSE 5%-WATER - 50 ML IVPB SCH ×3 (01:19→18:13)
[2023-04-26 02:06] VITALS: RESP 20
[2023-04-26] MEDS: LORazepam 2 MG/ML SDV VIAL IVPUSH SCH ×3 (02:09→18:13)
[2023-04-26] MEDS: AMINO ACIDS 4.25%/D5W 1,000 ML IV SCH ×3 (02:19→22:45)
[2023-04-26] MEDS: SODIUM CHLORIDE IVPB SCH ×4 (02:21→22:45)
[2023-04-26] MEDS: VALPROATE SODIUM IVPB SCH ×4 (02:21→22:45)
[2023-04-26] MEDS: TRIHEXYPHENIDYL HCL 5 MG TABLET PO SCH ×3 (05:38→22:45)
[2023-04-26] MEDS: ALBUTEROL SO4 2.5/IPRATROPIUM 0.5 INH SOL 3 ML VIAL.NEB. NEB SCH ×4 (07:35→20:40)
[2023-04-26 10:43] LABS: BASO % 0.7 % (0-2.0); EOS % 5.7 % (0-4.5); HEMATOCRIT 45.4 % (35.4-49); HEMOGLOBIN 14.5 GM/dL (11.7-16.9); LYMPH % 39.8 % (8-40); MCH 28.7 pg (25.7-33.7); MEAN CELL VOLUME 89.6 fl (80-96); MEAN PLT VOLUME 8.4 fl (7.5-11.1); MONO % 10.5 % (3.8-10.2); NEUT % 43.3 % (42.8-82.8); PLATELET COUNT 307 10^3/uL (134-434); RBC 5.07 M/mm3 (4.00-5.60); RDW 13.8 % (11.9-15.9); WHITE BLOOD COUNT 7.9 K/mm3 (4.0-10.0)
[2023-04-26 10:51] LABS: POTASSIUM 3.5 mmol/L (3.5-5.1)
[2023-04-26 10:58] LABS: ALBUMIN 2.9 g/dl (3.4-5.0); BLOOD UREA NITROGEN 17.6 mg/dL (7-18); CALCIUM 8.8 mg/dL (8.5-10.1); MAGNESIUM 2.3 mg/dL (1.8-2.4)
[2023-04-26 11:00] LABS: CREATININE 0.7 mg/dL (0.55-1.3)
[2023-04-26 11:02] LABS: BILIRUBIN,TOTAL 0.4 mg/dL (0.2-1); TOT PROT 6.5 g/dl (6.4-8.2)
[2023-04-26] MEDS: SENNOSIDES 8.6MG TABLET (FP) PO SCH ×2 (11:59→22:45)
[2023-04-26] MEDS: HEPARIN NA (PORCINE) 5,000 UNITS/ML 1ML VIAL SQ SCH ×2 (12:32→22:44)
[2023-04-26] MEDS: CHOLECALCIFEROL (VIT D3) 1,000 UNIT (25 MCG) TABLET PO SCH (13:08)
[2023-04-27] MEDS: LORazepam 2 MG/ML SDV VIAL IVPUSH SCH ×3 (01:53→17:47)
[2023-04-27] MEDS: PIPERACILLIN/TAZOB 3.375 GM 3.375 GM in DEXTROSE 5%-WATER - 50 ML IVPB SCH ×3 (01:55→17:47)
[2023-04-27] MEDS: SODIUM CHLORIDE IVPB SCH ×4 (03:58→21:47)
[2023-04-27] MEDS: VALPROATE SODIUM IVPB SCH ×4 (03:58→21:47)
[2023-04-27] MEDS: AMINO ACIDS 4.25%/D5W 1,000 ML IV SCH ×3 (04:04→21:46)
[2023-04-27] MEDS: TRIHEXYPHENIDYL HCL 5 MG TABLET PO SCH ×3 (05:15→22:00)
[2023-04-27] MEDS: ALBUTEROL SO4 2.5/IPRATROPIUM 0.5 INH SOL 3 ML VIAL.NEB. NEB SCH ×4 (07:33→20:00)
[2023-04-27 10:06] LABS: BASO % 0.5 % (0-2.0); EOS % 6.4 % (0-4.5); HEMATOCRIT 44.2 % (35.4-49); LYMPH % 32.7 % (8-40); MCH 29.8 pg (25.7-33.7); MCHC 33.9 g/dl (32.0-35.9); MEAN CELL VOLUME 87.8 fl (80-96); MEAN PLT VOLUME 8.6 fl (7.5-11.1); MONO % 10.7 % (3.8-10.2); NEUT % 49.7 % (42.8-82.8); PLATELET COUNT 292 10^3/uL (134-434); RBC 5.03 M/mm3 (4.00-5.60); WHITE BLOOD COUNT 9.1 K/mm3 (4.0-10.0)
[2023-04-27 10:08] LABS: POTASSIUM 3.4 mmol/L (3.5-5.1)
[2023-04-27 10:13] LABS: BLOOD UREA NITROGEN 18.1 mg/dL (7-18)
[2023-04-27 10:14] LABS: CALCIUM 8.8 mg/dL (8.5-10.1); MAGNESIUM 2.2 mg/dL (1.8-2.4)
[2023-04-27 10:18] LABS: BILIRUBIN,TOTAL 0.5 mg/dL (0.2-1); CREATININE 0.6 mg/dL (0.55-1.3)
[2023-04-27] MEDS: CHOLECALCIFEROL (VIT D3) 1,000 UNIT (25 MCG) TABLET PO SCH (11:11)
[2023-04-27] MEDS: HEPARIN NA (PORCINE) 5,000 UNITS/ML 1ML VIAL SQ SCH ×2 (11:11→21:48)
[2023-04-27] MEDS: SENNOSIDES 8.6MG TABLET (FP) PO SCH ×2 (11:11→22:00)
[2023-04-28] MEDS: PIPERACILLIN/TAZOB 3.375 GM 3.375 GM in DEXTROSE 5%-WATER - 50 ML IVPB SCH ×2 (01:40→09:14)
[2023-04-28] MEDS: LORazepam 2 MG/ML SDV VIAL IVPUSH SCH ×2 (01:40→10:49)
[2023-04-28] MEDS: SODIUM CHLORIDE IVPB SCH ×2 (02:29→09:14)
[2023-04-28] MEDS: VALPROATE SODIUM IVPB SCH ×2 (02:29→09:14)
[2023-04-28] MEDS: TRIHEXYPHENIDYL HCL 5 MG TABLET PO SCH ×3 (05:31→22:53)
[2023-04-28] MEDS: ALBUTEROL SO4 2.5/IPRATROPIUM 0.5 INH SOL 3 ML VIAL.NEB. NEB SCH ×4 (07:41→20:05)
[2023-04-28] MEDS: HEPARIN NA (PORCINE) 5,000 UNITS/ML 1ML VIAL SQ SCH ×2 (09:14→22:52)
[2023-04-28] MEDS: CHOLECALCIFEROL (VIT D3) 1,000 UNIT (25 MCG) TABLET PO SCH (09:14)
[2023-04-28] MEDS: SENNOSIDES 8.6MG TABLET (FP) PO SCH ×2 (09:14→22:52)
[2023-04-28 09:26] LABS: BASO % 0.4 % (0-2.0); EOS % 4.9 % (0-4.5); HEMATOCRIT 46.2 % (35.4-49); LYMPH % 33.5 % (8-40); MCH 29.2 pg (25.7-33.7); MCHC 32.5 g/dl (32.0-35.9); MEAN CELL VOLUME 89.7 fl (80-96); MEAN PLT VOLUME 9.1 fl (7.5-11.1); MONO % 9.4 % (3.8-10.2); NEUT % 51.8 % (42.8-82.8); PLATELET COUNT 297 10^3/uL (134-434); RBC 5.15 M/mm3 (4.00-5.60); WHITE BLOOD COUNT 10.7 K/mm3 (4.0-10.0)
[2023-04-28 09:43] LABS: POTASSIUM 3.9 mmol/L (3.5-5.1)
[2023-04-28 10:01] LABS: ALBUMIN 3.3 g/dl (3.4-5.0); BLOOD UREA NITROGEN 15.6 mg/dL (7-18); MAGNESIUM 2.3 mg/dL (1.8-2.4)
[2023-04-28 10:03] LABS: CALCIUM 9.7 mg/dL (8.5-10.1)
[2023-04-28 10:04] LABS: CREATININE 0.7 mg/dL (0.55-1.3)
[2023-04-28 10:06] LABS: TOT PROT 7.4 g/dl (6.4-8.2)
[2023-04-28 10:11] LABS: BILIRUBIN,TOTAL 0.6 mg/dL (0.2-1)
[2023-04-28 11:15] LABS: MAGNESIUM 2.5 mg/dL (1.8-2.4)
[2023-04-28] MEDS: clonazePAM 2 MG TABLET PO SCH ×2 (15:09→22:52)
[2023-04-28] MEDS ORDERED: ALBUTEROL SO4 2.5/IPRATROPIUM 0.5 INH SOL 3 ML VIAL.NEB. NEB ONE (15:44)
[2023-04-28] MEDS: AMOX TR/POT CLAV 875MG/125MG TABLETS (FP) PO SCH (17:07)
[2023-04-28] MEDS ORDERED: DIVALPROEX SODIUM 500 MG TABLET E.C. PO SCH (22:00)
[2023-04-28] MEDS: SCOPOLAMINE HYDROBROMIDE 1 PATCH PATCH.TD72 TD SCH (23:04)
[2023-04-29] MEDS: CLONAZEPAM PO SCH ×2 (07:04→14:31)
[2023-04-29] MEDS: TRIHEXYPHENIDYL HCL 5 MG TABLET PO SCH ×2 (07:05→14:35)
[2023-04-29] MEDS: clonazePAM 2 MG TABLET PO SCH ×3 (07:05→15:16)
[2023-04-29] MEDS: ALBUTEROL SO4 2.5/IPRATROPIUM 0.5 INH SOL 3 ML VIAL.NEB. NEB SCH ×3 (07:15→15:55)
[2023-04-29 09:27] LABS: BASO % 0.6 % (0-2.0); EOS % 3.9 % (0-4.5); HEMOGLOBIN 15.3 GM/dL (11.7-16.9); LYMPH % 33.4 % (8-40); MCH 29.2 pg (25.7-33.7); MCHC 32.6 g/dl (32.0-35.9); MEAN CELL VOLUME 89.7 fl (80-96); MEAN PLT VOLUME 9.3 fl (7.5-11.1); MONO % 8.8 % (3.8-10.2); NEUT % 53.3 % (42.8-82.8); PLATELET COUNT 301 10^3/uL (134-434); RBC 5.24 M/mm3 (4.00-5.60); RDW 14.4 % (11.9-15.9)
[2023-04-29 09:50] LABS: POTASSIUM 3.8 mmol/L (3.5-5.1)
[2023-04-29] MEDS ORDERED: DIVALPROEX SODIUM 250 MG TABLET E.C. PO SCH (10:00)
[2023-04-29 10:04] LABS: ALBUMIN 3.4 g/dl (3.4-5.0); BLOOD UREA NITROGEN 19.7 mg/dL (7-18)
[2023-04-29 10:06] LABS: MAGNESIUM 2.1 mg/dL (1.8-2.4)
[2023-04-29 10:07] LABS: CREATININE 0.8 mg/dL (0.55-1.3)
[2023-04-29 10:09] LABS: BILIRUBIN,TOTAL 0.5 mg/dL (0.2-1); TOT PROT 7.3 g/dl (6.4-8.2)
[2023-04-29] MEDS: CHOLECALCIFEROL (VIT D3) 1,000 UNIT (25 MCG) TABLET PO SCH (10:18)
[2023-04-29] MEDS: AMOX TR/POT CLAV 875MG/125MG TABLETS (FP) PO SCH ×2 (10:18→16:54)
[2023-04-29] MEDS: SENNOSIDES 8.6MG TABLET (FP) PO SCH (10:19)
[2023-04-29] MEDS: HEPARIN NA (PORCINE) 5,000 UNITS/ML 1ML VIAL SQ SCH (10:19)
[2023-04-29 14:12] VITALS: BP 119/71; PULSE 82; TEMP 98.1
[2023-04-29] MEDS ORDERED: CLONAZEPAM PO SCH (14:45)
== END 2023-04-29 16:00 | DRG 720 ==
LOC: JER 13:06 → JERBED 21:42 → J4W 04-19 15:52 → J8W 04-22 18:50
PROVIDERS: ADMIT Internal Medicine; ATTEND Nurse Practitioner Family
DX: A41.89 Other specified sepsis (principal); J96.01 Acute respiratory failure with hypoxia; R53.2 Functional quadriplegia; N17.9 Acute kidney failure, unspecified; J18.9 Pneumonia, unspecified organism; E87.20 Acidosis, unspecified; R50.9 Fever, unspecified; G40.909 Epilepsy, unspecified, not intractable, without status epilepticus; G80.9 Cerebral palsy, unspecified; K21.9 Gastro-esophageal reflux disease without esophagitis; B35.4 Tinea corporis; L21.9 Seborrheic dermatitis, unspecified; E55.9 Vitamin D deficiency, unspecified; F79 Unspecified intellectual disabilities; R13.10 Dysphagia, unspecified
CPT/HCPCS: 0241U-QW; 36415; 71045-TC-FY; 71275-TC; 80048; 80053; 81003; 82550; 82553; 82803; 83605; 83735; 84100; 84484; 85025; 85027; 85610; 85730; 87040; 87086; 87635; 93005; 93010; 94640; 94761; 99285-25; G0480; J1644; Q9967

== ENCOUNTER 2024-01-20 11:24 | Inpatient (IN) | payer OTHER ==
[2024-01-20] MEDS ORDERED: ACETAMINOPHEN INJECTION 100 ML ONE (11:51)
[2024-01-20] MEDS: ACETAMINOPHEN 1000 MG/100 ML BAG IVPB ONE (11:57)
[2024-01-20 12:24] LABS: VENOUS BASE EXCESS 1.5 mmol/L (-2-2); VENOUS PCO2 61.1 mmHg (38-52); VENOUS PH 7.301 (7.310-7.410)
[2024-01-20 12:31] LABS: INR 1.22 (0.83-1.09); PROTHROMBIN TIME (PATIENT) 13.7 SEC (9.7-13.0)
[2024-01-20 12:33] LABS: ACTIVATED PTT 35.1 SECONDS (25.2-36.5); BASO % 0.4 % (0-2.0); EOS % 0.2 % (0-4.5); LYMPH % 7.6 % (8-40); MCH 29.6 pg (25.7-33.7); MCHC 33.4 g/dl (32.0-35.9); MEAN CELL VOLUME 88.6 fl (80-96); MONO % 13.7 % (3.8-10.2); NEUT % 78.1 % (42.8-82.8); PLATELET COUNT 353 10^3/uL (134-434); RBC 4.75 M/mm3 (4.00-5.60); RDW 13.7 % (11.9-15.9); WHITE BLOOD COUNT 14.7 K/mm3 (4.0-10.0)
[2024-01-20 12:47] LABS: CHLORIDE 105 mmol/L (98-107); POTASSIUM 3.9 mmol/L (3.5-5.1); SODIUM 142 mmol/L (136-145)
[2024-01-20 12:49] LABS: CALCIUM 9.8 mg/dL (8.5-10.1)
[2024-01-20 12:50] LABS: ALBUMIN 3.3 g/dl (3.4-5.0); ANION GAP 7 mmol/L (4-13); CO2 30 mmol/L (21-32); GLUCOSE,RANDOM 78 mg/dL (74-106); MAGNESIUM 2.2 mg/dL (1.8-2.4)
[2024-01-20 12:52] LABS: CREATININE 0.9 mg/dL (0.55-1.3)
[2024-01-20 12:53] LABS: SGOT/AST 28 U/L (15-37)
[2024-01-20 12:54] LABS: BILIRUBIN,TOTAL 0.5 mg/dL (0.2-1); TOT PROT 7.4 g/dl (6.4-8.2)
[2024-01-20 12:55] LABS: ALK PHOS 108 U/L (45-117)
[2024-01-20] MEDS ORDERED: VANCOMYCIN 1 GRAM (PRE-DOCKED) 1,000 MG/250 ML BAG IVPB ONE (13:00)
[2024-01-20] MEDS ORDERED: PIPERACILLIN/TAZOB 4.5 GM 4.5 GM/100 ML BAG IVPB ONE (13:00)
[2024-01-20 13:04] LABS: SGPT/ALT 34 U/L (13-61)
[2024-01-20] MEDS: PIPERACILLIN/TAZOB 4.5 GM 4.5 GM in DEXTROSE 5%-WATER 100 ML IVPB ONE (13:08)
[2024-01-20 13:29] LABS: LACTIC ACID 3.7 mmol/L (0.4-2.0)
[2024-01-20] MEDS: VANCOMYCIN 1,000 MG in DEXTROSE 5%-WATER - 250 ML IVPB ONE (14:32)
[2024-01-20] MEDS ORDERED: guaiFENesin/D-METHORPHAN HB 10 ML UNIT-DOSE CUPS PO PRN (15:45)
[2024-01-20] MEDS ORDERED: PIPERACILLIN/TAZOB 3.375 GM 3.375 GM in DEXTROSE 5%-WATER - 50 ML IVPB SCH (18:00)
[2024-01-20] MEDS: DEXTROSE 5%-LACTATED RINGERS 1,000 ML IV SCH (18:18)
[2024-01-20] MEDS: PIPERACILLIN/TAZOB 3.375 GM 3.375 GM in DEXTROSE 5%-WATER - 50 ML IVPB SCH (18:23)
[2024-01-20] MEDS: VALPROATE SODIUM INJECTION 500 MG in SODIUM CHLORIDE 50 ML IVPB SCH (21:54)
[2024-01-20] MEDS ORDERED: VALPROATE SODIUM 500 MG/5 ML VIAL IVPB SCH (22:00)
[2024-01-20] MEDS ORDERED: DIVALPROEX SODIUM 125 MG SPRINKLE CAPS PO SCH (22:00)
[2024-01-20] MEDS ORDERED: PATIENT'S OWN MEDICATION (NON-FORMULARY) (Methylcellulose [Fiber Laxative] 500 MG Tablet) GT SCH (22:00)
[2024-01-21] MEDS ORDERED: DIVALPROEX SODIUM 125 MG SPRINKLE CAPS PO SCH (07:00)
[2024-01-21] MEDS ORDERED: VALPROATE SODIUM 500 MG/5 ML VIAL IVPB SCH (07:00)
[2024-01-21] MEDS: ENOXAPARIN NA (PORCINE) 40 MG/0.4 ML DISP.SYRIN SQ SCH (09:42)
[2024-01-21] MEDS: VALPROATE SODIUM INJECTION 250 MG in SODIUM CHLORIDE 50 ML IVPB SCH (09:43)
[2024-01-21 10:03] LABS: BASO % 1.1 % (0-2.0); EOS % 0.9 % (0-4.5); HEMATOCRIT 37.9 % (35.4-49); HEMOGLOBIN 12.8 GM/dL (11.7-16.9); LYMPH % 29.5 % (8-40); MCH 29.9 pg (25.7-33.7); MCHC 33.9 g/dl (32.0-35.9); MEAN CELL VOLUME 88.3 fl (80-96); MONO % 12.1 % (3.8-10.2); NEUT % 56.4 % (42.8-82.8); PLATELET COUNT 296 10^3/uL (134-434); RDW 13.1 % (11.9-15.9); WHITE BLOOD COUNT 8.6 K/mm3 (4.0-10.0)
[2024-01-21 10:50] LABS: POTASSIUM 4.3 mmol/L (3.5-5.1)
[2024-01-21 10:53] LABS: ALBUMIN 2.8 g/dl (3.4-5.0); BLOOD UREA NITROGEN 9.9 mg/dL (7-18); MAGNESIUM 2.6 mg/dL (1.8-2.4)
[2024-01-21 10:56] LABS: CALCIUM 9.5 mg/dL (8.5-10.1); CREATININE 0.6 mg/dL (0.55-1.3)
[2024-01-21 10:57] LABS: BILIRUBIN,TOTAL 0.4 mg/dL (0.2-1)
[2024-01-21 10:58] LABS: TOT PROT 6.4 g/dl (6.4-8.2)
[2024-01-21] MEDS: VANCOMYCIN/WATER FOR INJ (PEG) 1,000 MG/200 ML BAG IVPB ONE (11:02)
[2024-01-21] MEDS: SCOPOLAMINE HYDROBROMIDE 1 PATCH PATCH.TD72 TD SCH (13:49)
[2024-01-21] MEDS: TRIHEXYPHENIDYL HCL 5 MG TABLET PO SCH (13:49)
[2024-01-21] MEDS ORDERED: PATIENT'S OWN MEDICATION (NON-FORMULARY) (Clonazepam [Clonazepam] 1 MG Tablet) PO SCH (14:00)
[2024-01-21] MEDS: ALBUTEROL SO4 2.5/IPRATROPIUM 0.5 INH SOL 3 ML VIAL.NEB. NEB SCH (15:43)
[2024-01-21] MEDS: CLONAZEPAM PO SCH (17:03)
[2024-01-21] MEDS: PIPERACILLIN/TAZOB 4.5 GM 4.5 GM in DEXTROSE 5%-WATER 100 ML IVPB SCH (17:03)
[2024-01-21] MEDS: SENNOSIDES 8.6MG TABLET (FP) PO SCH (22:45)
[2024-01-22 11:00] LABS: BASO % 1.4 % (0-2.0); EOS % 1.4 % (0-4.5); HEMATOCRIT 40.5 % (35.4-49); HEMOGLOBIN 13.7 GM/dL (11.7-16.9); LYMPH % 36.6 % (8-40); MCH 30.2 pg (25.7-33.7); MCHC 33.9 g/dl (32.0-35.9); MONO % 11.2 % (3.8-10.2); NEUT % 49.4 % (42.8-82.8); PLATELET COUNT 371 10^3/uL (134-434); RBC 4.55 M/mm3 (4.00-5.60); RDW 13.7 % (11.9-15.9); WHITE BLOOD COUNT 6.4 K/mm3 (4.0-10.0)
[2024-01-22 11:23] LABS: POTASSIUM 4.5 mmol/L (3.5-5.1)
[2024-01-22 11:30] LABS: BLOOD UREA NITROGEN 7.2 mg/dL (7-18); CALCIUM 9.5 mg/dL (8.5-10.1)
[2024-01-22 11:34] LABS: CREATININE 0.7 mg/dL (0.55-1.3)
[2024-01-22 15:37] VITALS: BMI 25.4
[2024-01-23] MEDS: DIVALPROEX SODIUM 125 MG TABLET E.C. PO SCH (21:48)
[2024-01-23] MEDS ORDERED: VALPROATE SODIUM INJECTION 500 MG in SODIUM CHLORIDE 100 ML IVPB SCH (22:00)
[2024-01-24] MEDS ORDERED: VALPROATE SODIUM INJECTION 250 MG in SODIUM CHLORIDE 100 ML IVPB SCH (10:00)
[2024-01-24] MEDS: VALPROATE SODIUM INJECTION 250 MG in SODIUM CHLORIDE 100 ML IVPB SCH (12:40)
[2024-01-24 13:04] LABS: HEMATOCRIT 43.8 % (35.4-49); HEMOGLOBIN 14.2 GM/dL (11.7-16.9); MCH 29.4 pg (25.7-33.7); MCHC 32.4 g/dl (32.0-35.9); MEAN CELL VOLUME 90.9 fl (80-96); MEAN PLT VOLUME 7.8 fl (7.5-11.1); PLATELET COUNT 434 10^3/uL (134-434); RBC 4.81 M/mm3 (4.00-5.60); RDW 13.4 % (11.9-15.9); WHITE BLOOD COUNT 7.1 K/mm3 (4.0-10.0)
[2024-01-24] MEDS: VALPROATE SODIUM 500 MG/5 ML VIAL IVPB SCH (13:54)
[2024-01-25 04:05] VITALS: BP 103/73; PULSE 82; RESP 18; TEMP 98.1
[2024-01-25 09:31] LABS: BASO % 0.8 % (0-2.0); HEMATOCRIT 43.5 % (35.4-49); HEMOGLOBIN 14.4 GM/dL (11.7-16.9); MCH 29.5 pg (25.7-33.7); MEAN CELL VOLUME 89.3 fl (80-96); MEAN PLT VOLUME 7.4 fl (7.5-11.1); NEUT % 46.2 % (42.8-82.8); PLATELET COUNT 418 10^3/uL (134-434); RBC 4.87 M/mm3 (4.00-5.60); RDW 13.7 % (11.9-15.9); WHITE BLOOD COUNT 6.4 K/mm3 (4.0-10.0)
[2024-01-25] MEDS ORDERED: DIVALPROEX SODIUM 125 MG TABLET E.C. PO SCH (22:00)
== END 2024-01-25 15:52 | disposition home or self-care (01) | DRG 720 ==
LOC: JER 11:24 → JERBED 14:25 → J6S 16:05
PROVIDERS: ADMIT Internal Medicine; ATTEND Internal Medicine
DX: A41.89 Other specified sepsis (principal); J69.0 Pneumonitis due to inhalation of food and vomit; J96.01 Acute respiratory failure with hypoxia; J96.02 Acute respiratory failure with hypercapnia; G40.909 Epilepsy, unspecified, not intractable, without status epilepticus; R13.10 Dysphagia, unspecified; G80.9 Cerebral palsy, unspecified; K20.90 Esophagitis, unspecified without bleeding; R00.0 Tachycardia, unspecified; R53.2 Functional quadriplegia; D72.829 Elevated white blood cell count, unspecified; E87.20 Acidosis, unspecified; F79 Unspecified intellectual disabilities; F19.20 Other psychoactive substance dependence, uncomplicated; K21.9 Gastro-esophageal reflux disease without esophagitis
CPT/HCPCS: 0241U-QW; 36415; 71045-TC-FY; 80048; 80053; 82550; 82553; 82803; 82962; 83605; 83690; 83735; 84100; 84484; 85025; 85027; 85610; 85730; 86850; 86900; 86901; 87040; 87186; 87635; 93005; 93010; 94640; 99285-25; J0131